=== PATIENT | male | born 1965 | race African-American/Black ===

== ENCOUNTER 2017-09-01 15:10 | Inpatient (IN) | payer OTHER ==
[2017-09-01 16:48] VITALS: BMI 20.9
--- NOTE | 2017-09-01 20:14 | HP ---
CIWA Score - CIWA Score Nausea/Vomitin Muscle Tremors: 4-Moderate,w/Arms Extend Anxiety: 5 Agitation: 5 Paroxysmal Sweats: No Perspiration Orientation: 3-Disoriented Date>2 days Tacttile Disturbances: 3-Moderate Itch/Numb/Burn Auditory Disturbances: 0-None Visual Disturbances: 0-None Headache: 3-Moderate CIWA-Ar Total Score: 26 Admission ROS BHS - HPI Chief Complaint: SEEKING DETOX FOR WITHDRAWAL SX'S R/T ALCOHOLISM Allergies/Adverse Reactions: Allergies Allergy/AdvReac Type Severity Reaction Status Date / Time No Known Allergies Allergy Verified 09/01/17 17:28 History of Present Illness: Y.O. MALE WITH LONG HX/O POLYSUBSTANCE ABUSE HERE FOR DETOX FROM ALCOHOL. CLIENT IS KNOWN TO PREVIOUS DETOX PROGRAMS. REPORTS LAST ATTEMPT WAS ABOUT 6 MONTHS AGO IN [facility]. REFERRED TODAY BY [facility]. CLIENT REPORTS LONGEST CLEAN 1.5 YEARS. Exam Limitations: No Limitations - Ebola screening Have you traveled outside of the country in the last 21 days: No Have you had contact with anyone from an Ebola affected area: No Have you been sick,other than usual withdrawal symptoms: No Do you have a fever: No - Review of Systems Constitutional: Loss of Appetite, Malaise, Night Sweats, Changes in sleep, Unintentional Wgt. Loss EENT: reports: Dental Problems (DECAYING OF TEETH) Respiratory: reports: Shortness of Breath (INTERMIITENT) Cardiac: reports: No Symptoms Reported GI: reports: Poor Appetite, Poor Fluid Intake, Abdominal cramping : reports: No Symptoms Reported Musculoskeletal: reports: No Symptoms Reported Integumentary: reports: No Symptoms Reported Neuro: reports: No Symptoms reported Endocrine: reports: No Symptoms Reported Hematology: reports: No Symptoms Reported Psychiatric: reports: Anxious, Depressed Other Systems: Reviewed and Negative Patient History - Patient Medical History Hx Anemia: No Hx Asthma: No Hx Chronic Obstructive Pulmonary Disease (COPD): No Hx Cancer: No Hx Cardiac Disorders: No Hx Congestive Heart Failure: No Hx Hypertension: Yes (NON COMPLIANT) Hx Hypercholesterolemia: No Hx Pacemaker: No HX Cerebrovascular Accident: No Hx Seizures: No Hx Dementia: No Hx Diabetes: No Hx Gastrointestinal Disorders: No Hx Liver Disease: No Hx Genitourinary Disorders: No Hx Sexually Transmitted Disorders: Yes (HIV) Hx Renal Disease (ESRD): No Hx Thyroid Disease: No Hx Human Immunodeficiency Virus (HIV): Yes (DX 1998 RX GENVOYA NON COMPLAINT FOR OVER A YEAR) Hx Hepatitis C: No Hx Depression: Yes (PROZAC NON COMPLAINT) Hx Suicide Attempt: No Hx Bipolar Disorder: No Hx Schizophrenia: No Other Medical History: ANXIETY - Patient Surgical History Past Surgical History: No Hx Neurologic Surgery: No Hx Cataract Extraction: No Hx Cardiac Surgery: No Hx Lung Surgery: No Hx Breast Surgery: No Hx Breast Biopsy: No Hx Abdominal Surgery: No Hx Appendectomy: No Hx Cholecystectomy: No Hx Genitourinary Surgery: No Hx Section: No Hx Orthopedic Surgery: No Hx Hysterectomy: No Anesthesia Reaction: No - PPD History Previous Implant?: Yes Documented Results: Negative w/proof Implanted On Prior [facility] Admission?: No PPD to be Administered?: Yes - Smoking Cessation Smoking history: Current every day smoker Have you smoked in the past 12 months: Yes Aproximately how many cigarettes per day: 20 Cigars Per Day: 0 Hx Chewing Tobacco Use: No Initiated information on smoking cessation: Yes 'Breaking Loose' booklet given: 09/01/17 - Substance & Tx. History Hx Alcohol Use: Yes Hx Substance Use: Yes Substance Use Type: Alcohol, Cocaine, Tranquilizers (CRYTAL METH) Hx Substance Use Treatment: Yes ([facility]) - Substances Abused Alcohol Route: Oral Frequency: Daily Amount used: liquor- 1 pint, beer- 4 (40oz) Age of first use: 18 Date of Last Use: 09/01/17 Cocaine Route: Inhalation Frequency: 3-6 times per week Amount used: 3 bags Age of first use: 20 Date of Last Use: 08/30/17 Crystal Meth Route: Injection Frequency: Daily Amount used: 1gm Age of first use: 51 Date of Last Use: 09/01/17 Family Disease History - Family Disease History Family Disease History: Diabetes: Mother, Other: Father (DRUG AND ALCOHOL) Admission Physical Exam BHS - Vital Signs Vital Signs: Vital Signs - 24 hr 09/01/17 16:45 Temperature 98.1 F Pulse Rate 83 Respiratory 19 Rate Blood Pressure 139/95 - Physical General Appearance: Yes: Appropriately Dressed, Thin, Tremorous, Irritable, Anxious HEENTM: Yes: EOMI, Normocephalic, Normal Voice, DIANA, Pharynx Normal, Other ( MISSING TEETH) Respiratory: Yes: Chest Non-Tender, Lungs Clear, Normal Breath Sounds, No Respiratory Distress, No Accessory Muscle Use Neck: Yes: No masses,lesions,Nodules, Supple, Trachea in good position Breast: Yes: Breast Exam Deferred Cardiology: Yes: Regular Rhythm, Regular Rate, S1, S2 Abdominal: Yes: Normal Bowel Sounds, Non Tender, Flat, Soft Genitourinary: Yes: Other (NO C/O) Back: Yes: Normal Inspection Musculoskeletal: Yes: full range of Motion, Gait Steady Extremities: Yes: Normal Range of Motion, Non-Tender, Tremors 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 intact, Fully Oriented, Alert, Motor Strength 5/5 Integumentary: Yes: Normal Color, Dry, Warm Lymphatic: Yes: Within Normal Limits - Diagnostic (1) Alcohol dependence with uncomplicated withdrawal Current Visit: Yes Status: Chronic (2) Cocaine dependence, uncomplicated Current Visit: Yes Status: Chronic (3) Nicotine dependence Current Visit: Yes Status: Chronic Qualifiers: Nicotine product type: cigarettes Substance use status: uncomplicated Qualified Code(s): F17.210 - Nicotine dependence, cigarettes, uncomplicated (4) Methamphetamine dependence Current Visit: Yes Status: Chronic (5) HIV disease Current Visit: Yes Status: Chronic Cleared for Admission [facility] - Detox or Rehab [facility] Level of Care: Medically Managed Detox Regimen/Protocol: [place] Claeared for Rehab Admission: No [facility] Breath Alcohol Content Breath Alcohol Content: 0 Urine Drug Screen - Results Drug Screen Negative: No Urine Drug Screen Results: JAVI-Cocaine, AMP-Amphetamines, MET-Methamphetamine
[2017-09-01] MEDS ORDERED: hydrOXYzine PAMOATE 50 MG CAPSULE (FP) PO PRN (20:24)
[2017-09-01] MEDS ORDERED: NICOTINE POLACRILEX 2 MG GUM BC PRN (20:24)
[2017-09-01] MEDS ORDERED: MENTHOL/PHENOL 1 EACH UD MM PRN (20:24)
[2017-09-01] MEDS ORDERED: MAGNESIUM HYDROX 2400MG/30ML ORAL SUSPENSION 30 ML CUP PO PRN (20:24)
[2017-09-01] MEDS ORDERED: LOPERAMIDE HCL 2 MG CAPSULE PO PRN (20:24)
[2017-09-01] MEDS ORDERED: chlordiazePOXIDE HCL 25 MG CAPSULE PO PRN (20:24)
[2017-09-01] MEDS ORDERED: P-EPHED 60MG/TRIPROLIDI 2.5MG TABLET PO PRN (20:24)
[2017-09-01] MEDS ORDERED: MAG HYDROX/AL HYDROX/SIMETH 30 ML UNIT-DOSE CUP PO PRN (20:24)
[2017-09-01] MEDS ORDERED: MAGNESIUM CITRATE 300 ML BOTTLE PO PRN (20:24)
[2017-09-01] MEDS ORDERED: guaiFENesin/D-METHORPHAN HB 10 ML UNIT-DOSE CUPS PO PRN (20:24)
[2017-09-01] MEDS ORDERED: ACETAMINOPHEN 325 MG TABLET (FP) PO PRN (20:24)
[2017-09-01] MEDS ORDERED: IBUPROFEN 400 MG TABLET (FP) PO PRN (20:24)
[2017-09-01] MEDS ORDERED: MELATONIN 5 MG TABLETS PO PRN (22:00)
[2017-09-01] MEDS: amLODIPine BESYLATE 5 MG TABLET (FP) PO SCH (22:01)
[2017-09-01] MEDS: chlordiazePOXIDE HCL 25 MG CAPSULE PO SCH (22:03)
[2017-09-01] MEDS: THIAMINE HCL 100 MG TABLET (FP) PO SCH (22:03)
[2017-09-01] MEDS: ASPIRIN COATED 81 MG TABLET.EC PO SCH (22:04)
[2017-09-02 05:08] LABS: URINE APPEARANCE CLEAR; URINE BILIRUBIN NEGATIVE (<2.0 mg/dL); URINE BLOOD NEGATIVE (NEGATIVE); URINE COLOR AMBER; URINE GLUCOSE (UA) NEGATIVE (NEGATIVE); URINE KETONE NEGATIVE (NEGATIVE); URINE LEUK ESTERASE TRACE (NEGATIVE); URINE NITRITE NEGATIVE (NEGATIVE); URINE UROBILINOGEN 4.0 E.U/dl mg/dL (0.2-1.0)
[2017-09-02 05:30] LABS: URINE PROTEIN 1+ (NEGATIVE)
[2017-09-02 05:53] LABS: EPI CELLS RARE /HPF (FEW); URINE MUCUS MODERATE
[2017-09-02] MEDS: chlordiazePOXIDE HCL 25 MG CAPSULE PO SCH ×4 (06:17→22:46)
[2017-09-02 10:17] LABS: HEMATOCRIT 31.7 % (35.4-49); HEMOGLOBIN 10.7 GM/dL (11.7-16.9); MCHC 33.9 g/dl (32.0-35.9); MEAN CELL VOLUME 82.5 fl (80-96); MEAN PLT VOLUME 7.3 fl (7.5-11.1); PLATELET COUNT 249 K/MM3 (134-434); RBC 3.84 M/mm3 (4.00-5.60); RDW 14.2 % (11.9-15.9); WHITE BLOOD COUNT 3.9 K/mm3 (4.0-10.0)
[2017-09-02 10:42] LABS: ALBUMIN 2.6 g/dl (3.4-5.0); ANION GAP -1 (8-16); BLOOD UREA NITROGEN 7 mg/dL (7-18); CALCIUM 8.2 mg/dL (8.5-10.1); CHLORIDE 107 mmol/L (98-107); CO2 28 mmol/L (21-32); GLUCOSE,RANDOM 82 mg/dL (74-106); POTASSIUM 3.9 mmol/L (3.5-5.1); SODIUM 134 mmol/L (136-145)
[2017-09-02 10:53] LABS: ALK PHOS 115 U/L (45-117); CREATININE 0.8 mg/dL (0.7-1.3); SGOT/AST 21 U/L (15-37); SGPT/ALT 14 U/L (12-78); TOT PROT 8.3 g/dl (6.4-8.2)
[2017-09-02 10:55] LABS: BILIRUBIN,TOTAL < 0.1 mg/dL (0.2-1.0)
[2017-09-02] MEDS: amLODIPine BESYLATE 5 MG TABLET (FP) PO SCH (10:58)
[2017-09-02] MEDS: ASPIRIN COATED 81 MG TABLET.EC PO SCH (10:58)
[2017-09-02] MEDS: PRENATAL VITAMINS W/ FOLIC ACID TABLET (FP) PO SCH (10:58)
[2017-09-02] MEDS: NICOTINE 14 MG/24 HOURS TOPICAL PATCH TD SCH (10:58)
--- NOTE | 2017-09-02 12:07 | CONSULT ---
[facility] Psychiatric Consult - Data Date of interview: 09/02/17 Admission source: [facility] Identifying data: First admission to [facility] for this 52 y/o AA male seeking detox treatment on for alcohol,cocaine and methamphetamine dependence.Patient is single without children,homeless,unemployed and supported on food stamps. Substance Abuse History: Confirmed by patient in this interview. See details in current [facility] report : Smoking history: Current every day smoker. Have you smoked in the past 12 months: Yes. Aproximately how many cigarettes per day: 20. Cigars Per Day: 0. Hx Chewing Tobacco Use: No. Initiated information on smoking cessation: Yes. 'Breaking Loose' booklet given: 09/01/17. - Substance & Tx. History. Hx Alcohol Use: Yes. Hx Substance Use: Yes. Substance Use Type : Alcohol, Cocaine, Tranquilizers (CRYTAL METH). Hx Substance Use Treatment: Yes ([facility]). - Substances Abused. Alcohol. Route: Oral. Frequency: Daily. Amount used: liquor- 1 pint, beer- 4 (40oz). Age of first use: 18. Date of Last Use: 09/01/17. Cocaine. Route: Inhalation. Frequency: 3-6 times per week. Amount used: 3 bags. Age of first use: 20. Date of Last Use: 08/30/17. Crystal Meth. Route: Injection. Frequency: Daily. Amount used: 1gm. Age of first use: 51. Date of Last Use: 09/01/17 Medical History: Hypertension,HIV infection since 1997 (on HAART medications). Psychiatric History: Patient denies history of mental illness,psychiatric hospitalizations or OPD care.Mr Verduzco denies history of suicide attempts. Physical/Sexual Abuse/Trauma History: Patient denies. Additional Comment: Urine Drug Screen Results: JAVI-Cocaine, AMP-Amphetamines, MET-Methamphetamine.Noted. Mental Status Exam - Mental Status Exam Alert and Oriented to: Time, Place, Person Cognitive Function: Grossly Intact Patient Appearance: Unkempt, Disheveled Mood: Nervous, Withdrawn Affect: Mood Congruent, Constricted Patient Behavior: Fatigued, Cooperative Speech Pattern: Clear Voice Loudness: Normal Thought Process: Goal Oriented Thought Disorder: Not Present Hallucinations: Denies Suicidal Ideation: Denies Homicidal Ideation: Denies Insight/Judgement: Poor Sleep: Poorly, Difficulty falling asleep Appetite: Fair Muscle strength/Tone: Normal Gait/Station: Normal Psychiatric Findings - Problem List ([place] 1, 2,3) (1) Alcohol dependence with uncomplicated withdrawal Current Visit: Yes Status: Acute (2) Cocaine dependence, uncomplicated Current Visit: Yes Status: Acute (3) Methamphetamine dependence Current Visit: Yes Status: Acute (4) Nicotine dependence Current Visit: Yes Status: Acute Qualifiers: Nicotine product type: cigarettes Substance use status: uncomplicated Qualified Code(s): F17.210 - Nicotine dependence, cigarettes, uncomplicated (5) Insomnia Current Visit: Yes Status: Acute - Initial Treatment Plan Initial Treatment Plan: Psychoeducation.Sleep hygiene.Detoxification in progress.Ambien 5 mg po hs prn.Ordered.Patient is informed of risk of parasomnias.He agrees with this careplan.Observation.
--- NOTE | 2017-09-02 13:08 | PN ---
S CIWA - CIWA Score Nausea/Vomitin-No Nausea/No Vomiting Muscle Tremors: 3 Anxiety: 5 Agitation: 3 Paroxysmal Sweats: 1-Minimal Palms Moist Orientation: 0-Oriented Tacttile Disturbances: 0-None Auditory Disturbances: 0-None Visual Disturbances: 0-None Headache: 0-None Present CIWA-Ar Total Score: 12 BHS Progress Note (SOAP) Subjective: ANXIETY,SWEATS,FATIGUE. Objective: 09/02/17 13:07 Vital Signs Temperature 97.4 F L 09/02/17 09:24 Pulse Rate 97 H 09/02/17 09:24 Respiratory Rate 18 09/02/17 09:24 Blood Pressure 125/83 09/02/17 09:24 O2 Sat by Pulse Oximetry (%) Laboratory Last Values WBC 3.9 K/mm3 (4.0-10.0) L 09/02/17 07:00 RBC 3.84 M/mm3 (4.00-5.60) L 09/02/17 07:00 Hgb 10.7 GM/dL (11.7-16.9) L 09/02/17 07:00 Hct 31.7 % (35.4-49) L 09/02/17 07:00 MCV 82.5 fl (80-96) 09/02/17 07:00 MCH 28.0 pg (25.7-33.7) 09/02/17 07:00 MCHC 33.9 g/dl (32.0-35.9) 09/02/17 07:00 RDW 14.2 % (11.9-15.9) 09/02/17 07:00 Plt Count 249 K/MM3 (134-434) 09/02/17 07:00 MPV 7.3 fl (7.5-11.1) L 09/02/17 07:00 Sodium 134 mmol/L (136-145) L 09/02/17 07:00 Potassium 3.9 mmol/L (3.5-5.1) 09/02/17 07:00 Chloride 107 mmol/L (98-107) 09/02/17 07:00 Carbon Dioxide 28 mmol/L (21-32) 09/02/17 07:00 Anion Gap -1 (8-16) L 09/02/17 07:00 BUN 7 mg/dL (7-18) 09/02/17 07:00 Creatinine 0.8 mg/dL (0.7-1.3) 09/02/17 07:00 Creat Clearance w eGFR > 60 (>60) 09/02/17 07:00 Random Glucose 82 mg/dL (74-106) 09/02/17 07:00 Calcium 8.2 mg/dL (8.5-10.1) L 09/02/17 07:00 Total Bilirubin < 0.1 mg/dL (0.2-1.0) L 09/02/17 07:00 AST 21 U/L (15-37) 09/02/17 07:00 ALT 14 U/L (12-78) 09/02/17 07:00 Alkaline Phosphatase 115 U/L (45-117) 09/02/17 07:00 Total Protein 8.3 g/dl (6.4-8.2) H 09/02/17 07:00 Albumin 2.6 g/dl (3.4-5.0) L 09/02/17 07:00 Urine Color [place]ica 09/02/17 00:42 Urine Appearance Clear 09/02/17 00:42 Urine pH 5.0 (5.0-8.0) 09/02/17 00:42 Ur Specific [place] 1.030 (1.001-1.035) 09/02/17 00:42 Urine Protein 1+ (NEGATIVE) H 09/02/17 00:42 Urine Glucose (UA) Negative (NEGATIVE) 09/02/17 00:42 Urine Ketones Negative (NEGATIVE) 09/02/17 00:42 Urine Blood Negative (NEGATIVE) 09/02/17 00:42 Urine Nitrite Negative (NEGATIVE) 09/02/17 00:42 Urine Bilirubin Negative (<2.0 mg/dL) 09/02/17 00:42 Urine Urobilinogen 4.0 e.u/dl mg/dL (0.2-1.0) 09/02/17 00:42 Ur Leukocyte Esterase Trace (NEGATIVE) 09/02/17 00:42 Urine WBC (Auto) 6 /hpf (3-5) 09/02/17 00:42 Urine RBC (Auto) 1 /hpf (0-3) 09/02/17 00:42 Ur Epithelial Cells Rare /HPF (FEW) 09/02/17 00:42 Urine Mucus Moderate 09/02/17 00:42 Assessment: 09/02/17 13:07 WITHDRAWAL SX Plan: CONTINUE DETOX REPEAT UA
--- NOTE | 2017-09-02 13:10 | EKG ---
Test Reason : Blood Pressure : / mmHG Vent. Rate : 077 BPM Atrial Rate : 077 BPM P-R Int : 174 ms QRS Dur : 098 ms QT Int : 406 ms P-R-T Axes : 071 068 069 degrees QTc Int : 459 ms NORMAL SINUS RHYTHM NORMAL ECG NO PREVIOUS ECGS AVAILABLE Confirmed by MIGUEL BOYLE, CONSTANZA ([id number]) on 09/02/2017 1:10:15 PM Referred By: Confirmed By:CONSTANZA RIVERA MD
[2017-09-02] MEDS ORDERED: ZOLPIDEM TARTRATE 5 MG TABLET PO PRN (22:00)
[2017-09-02] MEDS: THIAMINE HCL 100 MG TABLET (FP) PO SCH (22:46)
[2017-09-03] MEDS: chlordiazePOXIDE HCL 25 MG CAPSULE PO SCH ×3 (05:53→17:34)
[2017-09-03] MEDS: NICOTINE 14 MG/24 HOURS TOPICAL PATCH TD SCH (10:34)
[2017-09-03] MEDS: amLODIPine BESYLATE 5 MG TABLET (FP) PO SCH (10:34)
[2017-09-03] MEDS: ASPIRIN COATED 81 MG TABLET.EC PO SCH (10:34)
[2017-09-03] MEDS: PRENATAL VITAMINS W/ FOLIC ACID TABLET (FP) PO SCH (10:34)
--- NOTE | 2017-09-03 16:33 | PN ---
S CIWA - CIWA Score Nausea/Vomitin-No Nausea/No Vomiting Muscle Tremors: 2 Anxiety: 4-Mod. Anxious/Guarded Agitation: 3 Paroxysmal Sweats: No Perspiration Orientation: 0-Oriented Tacttile Disturbances: 0-None Auditory Disturbances: 2-Mild Harshness/Frighten Visual Disturbances: 3-Moderate Sensitivity Headache: 0-None Present CIWA-Ar Total Score: 14 BHS Progress Note (SOAP) Subjective: Interrupted Sleep, Fatigue, Anxious, Tremors. Objective: PATIENT A & O X 3. NO ACUTE DISTRESS. 09/03/17 16:31 Vital Signs Temperature 98.6 F 09/03/17 14:46 Pulse Rate 98 H 09/03/17 14:46 Respiratory Rate 16 09/03/17 14:46 Blood Pressure 117/78 09/03/17 14:46 O2 Sat by Pulse Oximetry (%) Laboratory Tests 09/02/17 09/02/17 09/02/17 00:42 07:00 07:00 WBC 3.9 L RBC 3.84 L Hgb 10.7 L Hct 31.7 L MCV 82.5 MCH 28.0 MCHC 33.9 RDW 14.2 Plt Count 249 MPV 7.3 L Sodium 134 L Potassium 3.9 Chloride 107 Carbon Dioxide 28 Anion Gap -1 L BUN 7 Creatinine 0.8 Creat Clearance w eGFR > 60 Random Glucose 82 Calcium 8.2 L Total Bilirubin < 0.1 L AST 21 ALT 14 Alkaline Phosphatase 115 Total Protein 8.3 H Albumin 2.6 L Urine Color Yesica Urine Appearance Clear Urine pH 5.0 Ur Specific [place] 1.030 Urine Protein 1+ H Urine Glucose (UA) Negative Urine Ketones Negative Urine Blood Negative Urine Nitrite Negative Urine Bilirubin Negative Urine Urobilinogen 4.0 e.u/dl Ur Leukocyte Esterase Trace Urine WBC (Auto) 6 Urine RBC (Auto) 1 Ur Epithelial Cells Rare Urine Mucus Moderate RPR Titer 09/02/17 07:00 WBC RBC Hgb Hct MCV MCH MCHC RDW Plt Count MPV Sodium Potassium Chloride Carbon Dioxide Anion Gap BUN Creatinine Creat Clearance w eGFR Random Glucose Calcium Total Bilirubin AST ALT Alkaline Phosphatase Total Protein Albumin Urine Color Urine Appearance Urine pH Ur Specific [place] Urine Protein Urine Glucose (UA) Urine Ketones Urine Blood Urine Nitrite Urine Bilirubin Urine Urobilinogen Ur Leukocyte Esterase Urine WBC (Auto) Urine RBC (Auto) Ur Epithelial Cells Urine Mucus RPR Titer Nonreactive LABS NOTED. Assessment: 09/03/17 16:32 WITHDRAWAL SYMPTOMS. Plan: CONTINUE DETOX. INCREASE DAILY PO FLUID INTAKE.
[2017-09-03] MEDS: chlordiazePOXIDE 5 MG CAPSULE PO SCH (22:47)
[2017-09-03] MEDS: THIAMINE HCL 100 MG TABLET (FP) PO SCH (22:47)
[2017-09-04] MEDS: chlordiazePOXIDE 5 MG CAPSULE PO SCH ×3 (06:18→17:15)
[2017-09-04] MEDS: ASPIRIN COATED 81 MG TABLET.EC PO SCH (11:09)
[2017-09-04] MEDS: PRENATAL VITAMINS W/ FOLIC ACID TABLET (FP) PO SCH (11:10)
[2017-09-04] MEDS: NICOTINE 14 MG/24 HOURS TOPICAL PATCH TD SCH (11:10)
[2017-09-04] MEDS: amLODIPine BESYLATE 5 MG TABLET (FP) PO SCH (11:10)
--- NOTE | 2017-09-04 11:51 | PN ---
BHS Progress Note (SOAP) Subjective: Constipation, Fatigue. Objective: PATIENT A & O X 3. NO ACUTE DISTRESS. 09/04/17 11:49 Vital Signs Temperature 97.9 F 09/04/17 09:36 Pulse Rate 88 09/04/17 09:36 Respiratory Rate 18 09/04/17 09:36 Blood Pressure 112/81 09/04/17 09:36 O2 Sat by Pulse Oximetry (%) Laboratory Tests 09/02/17 09/02/17 09/02/17 00:42 07:00 07:00 WBC 3.9 L RBC 3.84 L Hgb 10.7 L Hct 31.7 L MCV 82.5 MCH 28.0 MCHC 33.9 RDW 14.2 Plt Count 249 MPV 7.3 L Sodium 134 L Potassium 3.9 Chloride 107 Carbon Dioxide 28 Anion Gap -1 L BUN 7 Creatinine 0.8 Creat Clearance w eGFR > 60 Random Glucose 82 Calcium 8.2 L Total Bilirubin < 0.1 L AST 21 ALT 14 Alkaline Phosphatase 115 Total Protein 8.3 H Albumin 2.6 L Urine Color Yesica Urine Appearance Clear Urine pH 5.0 Ur Specific [place] 1.030 Urine Protein 1+ H Urine Glucose (UA) Negative Urine Ketones Negative Urine Blood Negative Urine Nitrite Negative Urine Bilirubin Negative Urine Urobilinogen 4.0 e.u/dl Ur Leukocyte Esterase Trace Urine WBC (Auto) 6 Urine RBC (Auto) 1 Ur Epithelial Cells Rare Urine Mucus Moderate RPR Titer 09/02/17 07:00 WBC RBC Hgb Hct MCV MCH MCHC RDW Plt Count MPV Sodium Potassium Chloride Carbon Dioxide Anion Gap BUN Creatinine Creat Clearance w eGFR Random Glucose Calcium Total Bilirubin AST ALT Alkaline Phosphatase Total Protein Albumin Urine Color Urine Appearance Urine pH Ur Specific [place] Urine Protein Urine Glucose (UA) Urine Ketones Urine Blood Urine Nitrite Urine Bilirubin Urine Urobilinogen Ur Leukocyte Esterase Urine WBC (Auto) Urine RBC (Auto) Ur Epithelial Cells Urine Mucus RPR Titer Nonreactive LABS NOTED. RESULTS OF REPEAT UA PENDING. PATIENT DENIES ANY UNUSUAL URINARY SYMPTOMS (BURNING, PAIN, FREQUENCY, URGENCY). Assessment: 09/04/17 11:50 WITHDRAWAL SYMPTOMS. Plan: CONTINUE DETOX. INCREASE DAILY PO FLUID INTAKE.
[2017-09-04 14:11] LABS: URINE APPEARANCE SLCLOUDY; URINE BILIRUBIN NEGATIVE (<2.0 mg/dL); URINE BLOOD NEGATIVE (NEGATIVE); URINE COLOR YELLOW; URINE GLUCOSE (UA) NEGATIVE (NEGATIVE); URINE KETONE NEGATIVE (NEGATIVE); URINE LEUK ESTERASE NEGATIVE (NEGATIVE); URINE NITRITE POSITIVE (NEGATIVE); URINE PROTEIN NEGATIVE (NEGATIVE); URINE UROBILINOGEN NEGATIVE mg/dL (0.2-1.0)
[2017-09-04 14:29] LABS: EPI CELLS RARE /HPF (FEW); URINE BACTERIA MANY /hpf (NONE SEEN); URINE MUCUS RARE
--- NOTE | 2017-09-04 15:58 | PN ---
BHS Progress Note Note: Results of Repeat UA noted. Patient denies any current unusual urinary symptoms (burning, pain, frequency, urgency, etc. No need for further action at this time. Aamir Tomas [employer]GET[employer]OWER
[2017-09-04] MEDS: chlordiazePOXIDE HCL 10 MG CAPSULE PO SCH (23:01)
[2017-09-04] MEDS: THIAMINE HCL 100 MG TABLET (FP) PO SCH (23:01)
[2017-09-05] MEDS: chlordiazePOXIDE HCL 10 MG CAPSULE PO SCH (05:21)
[2017-09-05 06:34] VITALS: BP 143/89; PULSE 94; TEMP 97.5
--- NOTE | 2017-09-05 16:48 | PN ---
[facility] Progress Note (SOAP) Subjective: Patient denies any current Detox symptoms and reports that he feels well overall. Objective: PATIENT A & O X 3, OBSERVED AMBULATING ON UNIT. NO ACUTE DISTRESS. 09/05/17 16:47 Vital Signs Temperature 97.5 F L 09/05/17 06:33 Pulse Rate 94 H 09/05/17 06:33 Respiratory Rate 18 09/05/17 06:33 Blood Pressure 143/89 09/05/17 06:33 O2 Sat by Pulse Oximetry (%) Laboratory Tests 09/02/17 09/02/17 09/02/17 00:42 07:00 07:00 WBC 3.9 L RBC 3.84 L Hgb 10.7 L Hct 31.7 L MCV 82.5 MCH 28.0 MCHC 33.9 RDW 14.2 Plt Count 249 MPV 7.3 L Sodium 134 L Potassium 3.9 Chloride 107 Carbon Dioxide 28 Anion Gap -1 L BUN 7 Creatinine 0.8 Creat Clearance w eGFR > 60 Random Glucose 82 Calcium 8.2 L Total Bilirubin < 0.1 L AST 21 ALT 14 Alkaline Phosphatase 115 Total Protein 8.3 H Albumin 2.6 L Urine Color Yesica Urine Appearance Clear Urine pH 5.0 Ur Specific [place] 1.030 Urine Protein 1+ H Urine Glucose (UA) Negative Urine Ketones Negative Urine Blood Negative Urine Nitrite Negative Urine Bilirubin Negative Urine Urobilinogen 4.0 e.u/dl Ur Leukocyte Esterase Trace Urine WBC (Auto) 6 Urine RBC (Auto) 1 Ur Epithelial Cells Rare Urine Bacteria Urine Mucus Moderate RPR Titer 09/02/17 09/04/17 07:00 10:40 WBC RBC Hgb Hct MCV MCH MCHC RDW Plt Count MPV Sodium Potassium Chloride Carbon Dioxide Anion Gap BUN Creatinine Creat Clearance w eGFR Random Glucose Calcium Total Bilirubin AST ALT Alkaline Phosphatase Total Protein Albumin Urine Color Yellow Urine Appearance Slcloudy Urine pH 6.0 Ur Specific [place] 1.012 Urine Protein Negative Urine Glucose (UA) Negative Urine Ketones Negative Urine Blood Negative Urine Nitrite Positive Urine Bilirubin Negative Urine Urobilinogen Negative Ur Leukocyte Esterase Negative Urine WBC (Auto) 1 Urine RBC (Auto) <1 Ur Epithelial Cells Rare Urine Bacteria Many Urine Mucus Rare RPR Titer Nonreactive LABS NOTED. Assessment: 09/05/17 16:47 COMPLETION OF DETOX REGIMEN. Plan: PATIENT SCHEDULED FOR DISCHARGE FROM DETOX TODAY. NO BEDS AVAILABLE AT [facility], PATIENT ADVISED TO CONTACT [facility] ADMISSIONS DEPT. IN AM ON 09/07/2017, TO INQUIRE ABOUT POSSIBLE ADMISSION AT THAT TIME.
--- NOTE | 2017-09-05 16:51 | DS ---
[facility] Detox Discharge Summary Admission Date: 09/01/17 Discharge Date: 09/05/17 - History Present History: Alcohol Dependence, Cocaine Dependence Additional Comments: NO BEDS AVAILABLE AT [facility], PATIENT ADVISED TO CONTACT [facility] ADMISSIONS DEPT. IN AM ON 09/07/2017, TO INQUIRE ABOUT POSSIBLE ADMISSION AT THAT TIME. PATIENT WAS DISCHARGED FROM DETOX UNIT IN STABLE MEDICAL CONDITION. Pertinent Past History: Depression, Anxiety, HIV, Insomnia, Nicotine Dependence. - Physical Exam Results Vital Signs: Vital Signs Temperature 97.5 F L 09/05/17 06:33 Pulse Rate 94 H 09/05/17 06:33 Respiratory Rate 09/05/17 06:33 Blood Pressure 143/89 09/05/17 06:33 O2 Sat by Pulse Oximetry (%) Pertinent Admission Physical Exam Findings: WITHDRAWAL SYMPTOMS. Laboratory Tests 09/02/17 09/02/17 09/02/17 00:42 07:00 07:00 WBC 3.9 L RBC 3.84 L Hgb 10.7 L Hct 31.7 L MCV 82.5 MCH 28.0 MCHC 33.9 RDW 14.2 Plt Count 249 MPV 7.3 L Sodium 134 L Potassium 3.9 Chloride 107 Carbon Dioxide 28 Anion Gap -1 L BUN 7 Creatinine 0.8 Creat Clearance w eGFR > 60 Random Glucose 82 Calcium 8.2 L Total Bilirubin < 0.1 L AST 21 ALT 14 Alkaline Phosphatase 115 Total Protein 8.3 H Albumin 2.6 L Urine Color [place] Urine Appearance Clear Urine pH 5.0 Ur Specific [place] 1.030 Urine Protein 1+ H Urine Glucose (UA) Negative Urine Ketones Negative Urine Blood Negative Urine Nitrite Negative Urine Bilirubin Negative Urine Urobilinogen 4.0 e.u/dl Ur Leukocyte Esterase Trace Urine WBC (Auto) 6 Urine RBC (Auto) 1 Ur Epithelial Cells Rare Urine Bacteria Urine Mucus Moderate RPR Titer 09/02/17 09/04/17 07:00 10:40 WBC RBC Hgb Hct MCV MCH MCHC RDW Plt Count MPV Sodium Potassium Chloride Carbon Dioxide Anion Gap BUN Creatinine Creat Clearance w eGFR Random Glucose Calcium Total Bilirubin AST ALT Alkaline Phosphatase Total Protein Albumin Urine Color Yellow Urine Appearance Slcloudy Urine pH 6.0 Ur Specific [place] 1.012 Urine Protein Negative Urine Glucose (UA) Negative Urine Ketones Negative Urine Blood Negative Urine Nitrite Positive Urine Bilirubin Negative Urine Urobilinogen Negative Ur Leukocyte Esterase Negative Urine WBC (Auto) 1 Urine RBC (Auto) <1 Ur Epithelial Cells Rare Urine Bacteria Many Urine Mucus Rare RPR Titer Nonreactive LABS NOTED. - Treatment Hospital Course: Detox Protocol Followed, Detoxed Safely, Responded well, Discharged Condition Good, Rehab Referral Accepted Patient has Accepted a Rehab Referral to: [facility] ([email or web address] . - Medication Discharge Medications: Ambulatory Orders Amlodipine Besylate [Amlodipine Besylate] 09/01/17 Aspirin [Aspirin EC] 09/01/17 Atenolol [Tenormin -] 09/01/17 Elviteg/Cob/Emtri/Tenof Alafen [Genvoya (Non-Formulary)] 09/01/17 Fluoxetine HCl [Fluoxetine HCl] 09/01/17 Sulfamethoxazole/Trimethoprim [Sulfamethoxazole-Tmp Ds Tablet] 09/01/17 - Diagnosis (1) Alcohol dependence with uncomplicated withdrawal Status: Acute (2) Cocaine dependence, uncomplicated Status: Acute (3) Insomnia Status: Acute Qualifiers: Insomnia type: unspecified Qualified Code(s): G47.00 - Insomnia, unspecified (4) Methamphetamine dependence Status: Acute (5) Nicotine dependence Status: Acute Qualifiers: Nicotine product type: cigarettes Substance use status: in withdrawal Qualified Code(s): F17.213 - Nicotine dependence, cigarettes, with withdrawal (6) HIV disease Status: Chronic - AMA Did Patient Leave Against Medical Advice: No
== END 2017-09-05 09:30 | disposition home or self-care (01) | DRG 774 ==
LOC: YASAS 15:10 → Y3N 17:52
PROVIDERS: ADMIT Internal Medicine; ATTEND Internal Medicine
PROC: HZ2ZZZZ Detoxification Services for Substance Abuse Treatment (ICD-10-PCS; principal; 2017-09-01)
DX: F10.230 Alcohol dependence with withdrawal, uncomplicated (principal); F14.20 Cocaine dependence, uncomplicated; F15.20 Other stimulant dependence, uncomplicated; F17.210 Nicotine dependence, cigarettes, uncomplicated; F41.9 Anxiety disorder, unspecified; G47.00 Insomnia, unspecified; I10 Essential (primary) hypertension; Z91.14 Patient's other noncompliance with medication regimen; Z21 Asymptomatic human immunodeficiency virus [HIV] infection status
CPT/HCPCS: 36415; 80053; 81003; 81015; 85027; 86593; 93005; 93010

== ENCOUNTER 2017-11-22 16:59 | Inpatient (IN) | payer OTHER ==
[2017-11-22 18:09] VITALS: BMI 21.3
--- NOTE | 2017-11-22 19:27 | HP ---
CIWA Score - CIWA Score Nausea/Vomitin-Int. Nausea w/Dry Heave Muscle Tremors: 4-Moderate,w/Arms Extend Anxiety: 5 Agitation: 4-Moderately Restless Paroxysmal Sweats: No Perspiration Orientation: 0-Oriented Tacttile Disturbances: 3-Moderate Itch/Numb/Burn Auditory Disturbances: 0-None Visual Disturbances: 0-None Headache: 2-Mild CIWA-Ar Total Score: 22 Admission ROS BHS - HPI Chief Complaint: ALCOHOL WITHDRAWAL SX Allergies/Adverse Reactions: Allergies Allergy/AdvReac Type Severity Reaction Status Date / Time No Known Allergies Allergy Verified 11/22/17 18:44 History of Present Illness: 52 Y/O AA/MALE WITH A HX ALCOHOL,CRYSTAL METH AND MARIJUANA DEPENDENCE SEEKING DETOX [place]. PT REPORTS HE WAS AT "[facility] ER TODAY TO GET HELP WITH MY ALCOHOL AND DRUG PROBLEM AND TO GET MY LIFE TOGETHER".PT REPORTS HE WAS JITTERY , RESTLESS, . DENIES HEARING VOICES. [facility] REFERRED HIM HERE. Exam Limitations: No Limitations - Ebola screening Have you traveled outside of the country in the last 21 days: No Have you had contact with anyone from an Ebola affected area: No Have you been sick,other than usual withdrawal symptoms: No Do you have a fever: No - Review of Systems Constitutional: Changes in sleep, Unintentional Wgt. Loss EENT: reports: Blurred Vision, Tearing, Nose Congestion, Dental Problems ( MISSING TEETH) Respiratory: reports: SOB with Exertion Cardiac: reports: Lightheadedness GI: reports: Constipated, Poor Fluid Intake : reports: No Symptoms Reported Musculoskeletal: reports: No Symptoms Reported Integumentary: reports: Rash Neuro: reports: Headache, Tremors, Dizziness Endocrine: reports: No Symptoms Reported Hematology: reports: No Symptoms Reported Psychiatric: reports: Orientated x3, Anxious, Depressed Other Systems: Reviewed and Negative Patient History - Patient Medical History Hx Anemia: No Hx Asthma: No Hx Chronic Obstructive Pulmonary Disease (COPD): No Hx Cancer: No Hx Cardiac Disorders: No Hx Congestive Heart Failure: No Hx Hypertension: Yes (NON COMPLIANT BUT TAKES AMLODIPINE 10 MG) Hx Hypercholesterolemia: No Hx Pacemaker: No HX Cerebrovascular Accident: No Hx Seizures: No Hx Dementia: No Hx Diabetes: No Hx Gastrointestinal Disorders: No Hx Liver Disease: No Hx Genitourinary Disorders: No Hx Sexually Transmitted Disorders: Yes (SYPHILIS & GONORRHEA TREATMENT IN THE PAST) Hx Renal Disease (ESRD): No Hx Thyroid Disease: No Hx Human Immunodeficiency Virus (HIV): Yes (DX 1998 RX GENVOYA NON COMPLAINT FOR OVER A YEAR) Hx Hepatitis C: No Hx Depression: Yes (PROZAC NON COMPLAINT) Hx Suicide Attempt: Yes (OVERDOSED ON PILLS IN 2007) Hx Bipolar Disorder: No Hx Schizophrenia: No - Patient Surgical History Past Surgical History: Yes Hx Neurologic Surgery: No Hx Cataract Extraction: No Hx Cardiac Surgery: No Hx Lung Surgery: No Hx Breast Surgery: No Hx Breast Biopsy: No Hx Abdominal Surgery: No Hx Appendectomy: No Hx Cholecystectomy: No Hx Genitourinary Surgery: No Hx Orthopedic Surgery: No Hx Hysterectomy: No Other Surgical History: TONSILLECTOMY A CHILD Anesthesia Reaction: No - PPD History Previous Implant?: Yes Documented Results: Negative w/proof Date: 09/03/17 PPD to be Administered?: No - Reproductive History Patient is a Female of Child Bearing Age (11 -55 yrs old): No (MALE) - Smoking Cessation Smoking history: Current every day smoker Have you smoked in the past 12 months: Yes Aproximately how many cigarettes per day: 20 Cigars Per Day: 0 Hx Chewing Tobacco Use: No Initiated information on smoking cessation: Yes 'Breaking Loose' booklet given: 11/22/17 - Substance & Tx. History Hx Alcohol Use: Yes (BEER/VODKA/WINE) Hx Substance Use: Yes (COCAINE/MARIJUANA/METHAMPHETAMINE) Substance Use Type: Alcohol, Cocaine, Marijuana Hx Substance Use Treatment: Yes - Substances Abused Alcohol Route: Oral Frequency: Daily Amount used: LIQUOR- 4 PINTS, BEER, 2 SIX PACK Age of first use: 15 Date of Last Use: 11/21/17 Family Disease History - Family Disease History Family Disease History: Diabetes: Mother, Other: Father (DRUG AND ALCOHOL) Admission Physical Exam BHS - Vital Signs Vital Signs: Vital Signs - 24 hr 11/22/17 18:07 Temperature 98.8 F Pulse Rate 91 H Respiratory 18 Rate Blood Pressure 118/79 - Physical General Appearance: Yes: Moderate Distress, Irritable, Anxious HEENTM: Yes: EOMI, Normocephalic, DIANA, Pharynx Normal Respiratory: Yes: Chest Non-Tender, Lungs Clear, Normal Breath Sounds, No Respiratory Distress Neck: Yes: Supple, Trachea in good position Breast: Yes: Breast Exam Deferred Cardiology: Yes: Regular Rhythm, Regular Rate, S1, S2 Abdominal: Yes: Normal Bowel Sounds, Non Tender, Flat, Soft Genitourinary: Yes: Other (N/C) Back: Yes: Within Normal Limits Musculoskeletal: Yes: full range of Motion, Gait Steady Extremities: Yes: Normal Range of Motion, Non-Tender Neurological: Yes: tube heater II-XII NML intact, Fully Oriented, Alert, Motor Strength 5/5 Integumentary: Yes: Dry, Warm Lymphatic: Yes: Within Normal Limits - Diagnostic (1) Alcohol dependence with uncomplicated withdrawal Current Visit: Yes Status: Acute (2) Cocaine dependence, uncomplicated Current Visit: Yes Status: Acute (3) Methamphetamine dependence Current Visit: Yes Status: Acute (4) Nicotine dependence Current Visit: Yes Status: Acute Qualifiers: Nicotine product type: cigarettes Substance use status: in withdrawal Qualified Code(s): F17.213 - Nicotine dependence, cigarettes, with withdrawal (5) HIV (human immunodeficiency virus infection) Current Visit: Yes Status: Chronic Cleared for Admission [facility] - Detox or Rehab [facility] Level of Care: Medically Managed Detox Regimen/Protocol: Librium [facility] Breath Alcohol Content Breath Alcohol Content: 0 Urine Drug Screen - Results Drug Screen Negative: No Urine Drug Screen Results: THC-Marijuana, JAVI-Cocaine, AMP-Amphetamines, MET- Methamphetamine
[2017-11-22] MEDS ORDERED: MAG HYDROX/AL HYDROX/SIMETH 30 ML UNIT-DOSE CUP PO PRN (19:39)
[2017-11-22] MEDS ORDERED: NICOTINE POLACRILEX 4 MG GUM BC PRN (19:39)
[2017-11-22] MEDS ORDERED: MAGNESIUM HYDROX 2400MG/30ML ORAL SUSPENSION 30 ML CUP PO PRN (19:39)
[2017-11-22] MEDS ORDERED: MENTHOL/PHENOL 1 EACH UD MM PRN (19:39)
[2017-11-22] MEDS ORDERED: guaiFENesin/D-METHORPHAN HB 10 ML UNIT-DOSE CUPS PO PRN (19:39)
[2017-11-22] MEDS ORDERED: LOPERAMIDE HCL 2 MG CAPSULE PO PRN (19:39)
[2017-11-22] MEDS ORDERED: MAGNESIUM CITRATE 300 ML BOTTLE PO PRN (19:39)
[2017-11-22] MEDS ORDERED: hydrOXYzine PAMOATE 50 MG CAPSULE (FP) PO PRN (19:39)
[2017-11-22] MEDS ORDERED: IBUPROFEN 400 MG TABLET (FP) PO PRN (19:39)
[2017-11-22] MEDS ORDERED: P-EPHED 60MG/TRIPROLIDI 2.5MG TABLET PO PRN (19:39)
[2017-11-22] MEDS ORDERED: ACETAMINOPHEN 325 MG TABLET (FP) PO PRN (19:39)
[2017-11-22] MEDS ORDERED: chlordiazePOXIDE HCL 25 MG CAPSULE PO PRN (19:39)
[2017-11-22] MEDS ORDERED: chlordiazePOXIDE HCL 25 MG CAPSULE PO ONE (20:00)
[2017-11-22] MEDS: NICOTINE 21 MG/24 HOURS TOPICAL PATCH TD SCH (21:01)
[2017-11-22] MEDS: THIAMINE HCL 100 MG TABLET (FP) PO SCH (21:01)
[2017-11-22] MEDS ORDERED: MELATONIN 5 MG TABLETS PO PRN (22:00)
[2017-11-22] MEDS: chlordiazePOXIDE HCL 25 MG CAPSULE PO SCH (23:08)
[2017-11-23] MEDS: chlordiazePOXIDE HCL 25 MG CAPSULE PO SCH ×4 (06:39→22:32)
[2017-11-23 10:08] LABS: HEMATOCRIT 31.3 % (35.4-49); HEMOGLOBIN 10.5 GM/dL (11.7-16.9); MCH 28.2 pg (25.7-33.7); MCHC 33.5 g/dl (32.0-35.9); MEAN CELL VOLUME 84.2 fl (80-96); MEAN PLT VOLUME 7.2 fl (7.5-11.1); PLATELET COUNT 297 K/MM3 (134-434); RBC 3.71 M/mm3 (4.00-5.60)
[2017-11-23] MEDS: PRENATAL VITAMINS W/ FOLIC ACID TABLET (FP) PO SCH (10:16)
[2017-11-23] MEDS: NICOTINE 21 MG/24 HOURS TOPICAL PATCH TD SCH (10:16)
[2017-11-23 10:17] LABS: CHLORIDE 104 mmol/L (98-107); POTASSIUM 4.2 mmol/L (3.5-5.1); SODIUM 136 mmol/L (136-145)
[2017-11-23 10:33] LABS: ALBUMIN 2.6 g/dl (3.4-5.0); ALK PHOS 80 U/L (45-117); ANION GAP 6 (8-16); BILIRUBIN,TOTAL 0.2 mg/dL (0.2-1.0); BLOOD UREA NITROGEN 17 mg/dL (7-18); CALCIUM 8.3 mg/dL (8.5-10.1); CO2 26 mmol/L (21-32); CREATININE 0.9 mg/dL (0.7-1.3); GLUCOSE,RANDOM 88 mg/dL (74-106); SGOT/AST 25 U/L (15-37); SGPT/ALT 18 U/L (12-78); TOT PROT 8.3 g/dl (6.4-8.2)
--- NOTE | 2017-11-23 10:38 | PN ---
S CIWA - CIWA Score Nausea/Vomitin-No Nausea/No Vomiting Muscle Tremors: 4-Moderate,w/Arms Extend Anxiety: 4-Mod. Anxious/Guarded Agitation: 4-Moderately Restless Paroxysmal Sweats: 1-Minimal Palms Moist Orientation: 0-Oriented Tacttile Disturbances: 0-None Auditory Disturbances: 0-None Visual Disturbances: 0-None Headache: 0-None Present CIWA-Ar Total Score: 13 S Progress Note (SOAP) Subjective: ANXIETY,SWEATS, FATIGUE,"JITTERY", RESTLESS. Objective: 11/23/17 10:32 Vital Signs 11/23/17 11/23/17 11/23/17 03:30 06:06 06:30 Temperature 98 F Pulse Rate 84 Respiratory 18 18 18 Rate Blood Pressure 104/69 11/23/17 09:04 Temperature 96.6 F L Pulse Rate 82 Respiratory 18 Rate Blood Pressure 128/79 Laboratory Tests 11/23/17 07:30 WBC 4.0 RBC 3.71 L Hgb 10.5 L Hct 31.3 L MCV 84.2 MCH 28.2 MCHC 33.5 RDW 14.0 Plt Count 297 MPV 7.2 L OTHER LABS PENDING Assessment: 11/23/17 10:38 WITHDRAWAL SX Plan: CONTINUE DETOX. INCREASE PO FLUIDS.
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
--- NOTE | 2017-11-23 22:11 | EKG ---
Test Reason : Blood Pressure : / mmHG Vent. Rate : 082 BPM Atrial Rate : 082 BPM P-R Int : 160 ms QRS Dur : 088 ms QT Int : 394 ms P-R-T Axes : 073 069 072 degrees QTc Int : 460 ms NORMAL SINUS RHYTHM NORMAL ECG WHEN COMPARED WITH ECG OF 01-SEP-2017 21:22, NO SIGNIFICANT CHANGE WAS FOUND Confirmed by DAISHA OBRIEN MD ([id number]) on 11/23/2017 10:11:01 PM Referred By: Pritesh Schroeder Confirmed By:DAISHA OBRIEN MD
[2017-11-23] MEDS: QUEtiapine FUMARATE 50 MG TABLET PO SCH (22:31)
[2017-11-23] MEDS: THIAMINE HCL 100 MG TABLET (FP) PO SCH (22:31)
[2017-11-24] MEDS: chlordiazePOXIDE HCL 25 MG CAPSULE PO SCH ×3 (05:02→17:21)
[2017-11-24] MEDS: FLUoxetine HCL 20 MG CAPSULE (FP) PO SCH (10:10)
[2017-11-24] MEDS: PRENATAL VITAMINS W/ FOLIC ACID TABLET (FP) PO SCH (10:10)
[2017-11-24] MEDS: NICOTINE 21 MG/24 HOURS TOPICAL PATCH TD SCH (10:11)
--- NOTE | 2017-11-24 10:57 | PN ---
S CIWA - CIWA Score Nausea/Vomitin-No Nausea/No Vomiting Muscle Tremors: 3 Anxiety: 4-Mod. Anxious/Guarded Agitation: 3 Paroxysmal Sweats: 1-Minimal Palms Moist Orientation: 0-Oriented Tacttile Disturbances: 0-None Auditory Disturbances: 0-None Visual Disturbances: 0-None Headache: 0-None Present CIWA-Ar Total Score: 11 BHS Progress Note (SOAP) Subjective: SLIGHT ANXIETY-LESS JITTERY,TREMORS. SWEATS/CHILLS,FATIGUE. Objective: 11/24/17 10:57 Vital Signs 11/24/17 11/24/17 11/24/17 03:30 06:06 06:30 Temperature 97.7 F Pulse Rate 78 Respiratory 18 18 18 Rate Blood Pressure 123/83 11/24/17 09:09 Temperature 97.4 F L Pulse Rate 83 Respiratory 20 Rate Blood Pressure 126/83 Laboratory Tests 11/23/17 11/23/17 11/23/17 07:30 07:30 07:30 WBC 4.0 RBC 3.71 L Hgb 10.5 L Hct 31.3 L MCV 84.2 MCH 28.2 MCHC 33.5 RDW 14.0 Plt Count 297 MPV 7.2 L Sodium 136 Potassium 4.2 Chloride 104 Carbon Dioxide 26 Anion Gap 6 L BUN 17 Creatinine 0.9 Creat Clearance w eGFR > 60 Random Glucose 88 Calcium 8.3 L Total Bilirubin 0.2 AST 25 ALT 18 D Alkaline Phosphatase 80 Total Protein 8.3 H Albumin 2.6 L RPR Titer Nonreactive Assessment: 11/24/17 10:58 WITHDRAWAL SX ANEMIA Plan: CONTINUE DETOX FEOSOL 325 MG PO DAILY
[2017-11-24] MEDS: FERROUS SO4 325 MG TABLET (FP) PO SCH (13:04)
[2017-11-24] MEDS: QUEtiapine FUMARATE 50 MG TABLET PO SCH (22:17)
[2017-11-24] MEDS: chlordiazePOXIDE 5 MG CAPSULE PO SCH (22:17)
[2017-11-24] MEDS: THIAMINE HCL 100 MG TABLET (FP) PO SCH (22:17)
[2017-11-24 23:05] LABS: URINE APPEARANCE CLEAR; URINE BILIRUBIN NEGATIVE (<2.0 mg/dL); URINE COLOR STRAW; URINE GLUCOSE (UA) NEGATIVE (NEGATIVE); URINE KETONE NEGATIVE (NEGATIVE); URINE LEUK ESTERASE NEGATIVE (NEGATIVE); URINE NITRITE NEGATIVE (NEGATIVE); URINE PROTEIN NEGATIVE (NEGATIVE); URINE UROBILINOGEN NEGATIVE mg/dL (0.2-1.0)
[2017-11-25] MEDS: chlordiazePOXIDE 5 MG CAPSULE PO SCH ×2 (05:47→10:22)
[2017-11-25] MEDS: FERROUS SO4 325 MG TABLET (FP) PO SCH (07:49)
[2017-11-25 09:06] VITALS: BP 134/87; PULSE 76; TEMP 97.1
--- NOTE | 2017-11-25 09:58 | PN ---
BHS Progress Note (SOAP) Subjective: ALERT O X 3. PT RESTING IN BED AND REPORTS DETOX PROCEEDING WELL. LESS ANXIOUS AND JITTERINESS RESOLVED. Objective: 11/25/17 09:57 Vital Signs 11/25/17 11/25/17 11/25/17 03:29 06:08 09:05 Temperature 98.5 F 97.1 F L Pulse Rate 80 76 Respiratory 18 18 18 Rate Blood Pressure 137/82 134/87 Laboratory Tests 11/23/17 11/23/17 11/23/17 07:30 07:30 07:30 WBC 4.0 RBC 3.71 L Hgb 10.5 L Hct 31.3 L MCV 84.2 MCH 28.2 MCHC 33.5 RDW 14.0 Plt Count 297 MPV 7.2 L Sodium 136 Potassium 4.2 Chloride 104 Carbon Dioxide 26 Anion Gap 6 L BUN 17 Creatinine 0.9 Creat Clearance w eGFR > 60 Random Glucose 88 Calcium 8.3 L Total Bilirubin 0.2 AST 25 ALT 18 D Alkaline Phosphatase 80 Total Protein 8.3 H Albumin 2.6 L Urine Color Urine Appearance Urine pH Ur Specific [place] Urine Protein Urine Glucose (UA) Urine Ketones Urine Blood Urine Nitrite Urine Bilirubin Urine Urobilinogen Ur Leukocyte Esterase RPR Titer Nonreactive 11/24/17 19:59 WBC RBC Hgb Hct MCV MCH MCHC RDW Plt Count MPV Sodium Potassium Chloride Carbon Dioxide Anion Gap BUN Creatinine Creat Clearance w eGFR Random Glucose Calcium Total Bilirubin AST ALT Alkaline Phosphatase Total Protein Albumin Urine Color Straw Urine Appearance Clear Urine pH 5.0 Ur Specific [place] 1.006 Urine Protein Negative Urine Glucose (UA) Negative Urine Ketones Negative Urine Blood Negative Urine Nitrite Negative Urine Bilirubin Negative Urine Urobilinogen Negative Ur Leukocyte Esterase Negative RPR Titer Assessment: 11/25/17 09:57 DECREASED WITHDRAWAL SX Plan: CONTINUE DETOX
[2017-11-25] MEDS: PRENATAL VITAMINS W/ FOLIC ACID TABLET (FP) PO SCH (10:21)
[2017-11-25] MEDS: FLUoxetine HCL 20 MG CAPSULE (FP) PO SCH (10:21)
[2017-11-25] MEDS: NICOTINE 21 MG/24 HOURS TOPICAL PATCH TD SCH (10:22)
--- NOTE | 2017-11-25 13:19 | DS ---
[facility] Detox Discharge Summary Admission Date: 11/22/17 Discharge Date: 11/25/17 - History Present History: Alcohol Dependence, Cocaine Dependence Additional Comments: PT IS ALERT O X 3. NAD. PT INSTRUCTED TO FOLLOW UP WITH HIS PRIMARY CARE DOCTOR FOR MEDICAL MANAGEMENT OF COMORBID CONDITIONS. Pertinent Past History: SEE DX BELOW - Physical Exam Results Vital Signs: Vital Signs Temperature 97.1 F L 11/25/17 09:05 Pulse Rate 76 11/25/17 09:05 Respiratory Rate 18 11/25/17 09:05 Blood Pressure 134/87 11/25/17 09:05 O2 Sat by Pulse Oximetry (%) Pertinent Admission Physical Exam Findings: WITHDRAWAL SX Laboratory Tests 11/23/17 11/23/17 11/23/17 07:30 07:30 07:30 WBC 4.0 RBC 3.71 L Hgb 10.5 L Hct 31.3 L MCV 84.2 MCH 28.2 MCHC 33.5 RDW 14.0 Plt Count 297 MPV 7.2 L Sodium 136 Potassium 4.2 Chloride 104 Carbon Dioxide 26 Anion Gap 6 L BUN 17 Creatinine 0.9 Creat Clearance w eGFR > 60 Random Glucose 88 Calcium 8.3 L Total Bilirubin 0.2 AST 25 ALT 18 D Alkaline Phosphatase 80 Total Protein 8.3 H Albumin 2.6 L Urine Color Urine Appearance Urine pH Ur Specific [place] Urine Protein Urine Glucose (UA) Urine Ketones Urine Blood Urine Nitrite Urine Bilirubin Urine Urobilinogen Ur Leukocyte Esterase RPR Titer Nonreactive 11/24/17 19:59 WBC RBC Hgb Hct MCV MCH MCHC RDW Plt Count MPV Sodium Potassium Chloride Carbon Dioxide Anion Gap BUN Creatinine Creat Clearance w eGFR Random Glucose Calcium Total Bilirubin AST ALT Alkaline Phosphatase Total Protein Albumin Urine Color Straw Urine Appearance Clear Urine pH 5.0 Ur Specific [place] 1.006 Urine Protein Negative Urine Glucose (UA) Negative Urine Ketones Negative Urine Blood Negative Urine Nitrite Negative Urine Bilirubin Negative Urine Urobilinogen Negative Ur Leukocyte Esterase Negative RPR Titer - Treatment Hospital Course: Detox Protocol Followed, Detoxed Safely, Responded well, Discharged Condition Good - Medication Discharge Medications: Ambulatory Orders Amlodipine Besylate 5 mg PO DAILY 09/01/17 Aspirin [Aspirin EC] 81 mg PO DAILY 09/01/17 Atenolol [Tenormin -] 25 mg PO DAILY 09/01/17 Elviteg/Cob/Emtri/Tenof Alafen [Genvoya (Non-Formulary)] 150 mg PO DAILY Fluoxetine HCl 20 mg PO DAILY 09/01/17 Sulfamethoxazole/Trimethoprim [Sulfamethoxazole-Tmp Ds Tablet] 1 tab PO DAILY Quetiapine Fumarate [Seroquel] 100 mg PO HS 11/23/17 - Diagnosis (1) Alcohol dependence with uncomplicated withdrawal Status: Acute (2) Cocaine dependence, uncomplicated Status: Acute (3) Methamphetamine dependence Status: Acute (4) Nicotine dependence Status: Acute Qualifiers: Nicotine product type: cigarettes Substance use status: in withdrawal Qualified Code(s): F17.213 - Nicotine dependence, cigarettes, with withdrawal (5) HIV (human immunodeficiency virus infection) Status: Chronic (6) Weight loss Status: Acute (7) Anemia Status: Acute Qualifiers: Anemia type: iron deficiency (8) Noncompliance with medication regimen Status: Chronic - AMA Did Patient Leave Against Medical Advice: Yes
[2017-11-25] MEDS ORDERED: chlordiazePOXIDE HCL 10 MG CAPSULE PO SCH (23:00)
== END 2017-11-25 13:10 | disposition home or self-care (01) | DRG 774 ==
LOC: YASAS 16:59 → Y3N 19:07
PROVIDERS: ADMIT Family Medicine Addiction Medicine; ATTEND Family Medicine Addiction Medicine
PROC: HZ2ZZZZ Detoxification Services for Substance Abuse Treatment (ICD-10-PCS; principal; 2017-11-22)
DX: F10.230 Alcohol dependence with withdrawal, uncomplicated (principal); F14.10 Cocaine abuse, uncomplicated; F15.20 Other stimulant dependence, uncomplicated; F17.213 Nicotine dependence, cigarettes, with withdrawal; F43.10 Post-traumatic stress disorder, unspecified; F19.24 Other psychoactive substance dependence with psychoactive substance-induced mood disorder; Z21 Asymptomatic human immunodeficiency virus [HIV] infection status; D50.8 Other iron deficiency anemias; R63.4 Abnormal weight loss; Z68.21 Body mass index [BMI] 21.0-21.9, adult; Z86.19 Personal history of other infectious and parasitic diseases; Z79.82 Long term (current) use of aspirin; Z91.14 Patient's other noncompliance with medication regimen; Z91.5 Personal history of self-harm
CPT/HCPCS: 36415; 80053; 81003; 85027; 86593; 93005; 93010

== ENCOUNTER 2018-07-20 12:37 | Inpatient (IN) | payer OTHER ==
[2018-07-20 13:28] VITALS: BMI 20.3
--- NOTE | 2018-07-20 15:04 | HP ---
CIWA Score Nausea/Vomitin-No Nausea/No Vomiting Muscle Tremors: 4-Moderate,w/Arms Extend Anxiety: 3 Agitation: 3 Paroxysmal Sweats: 1-Minimal Palms Moist Orientation: 0-Oriented Tacttile Disturbances: 1-Very Mild Itch/Numbness Auditory Disturbances: 0-None Visual Disturbances: 0-None Headache: 0-None Present CIWA-Ar Total Score: 12 - Admission Criteria OASAS Guidelines: Admission for Medically Managed Detox: Requires at least one of the followin. CIWA greater than 12 2. Seizures within the past 24 hours 3. Delirium tremens within the past 24 hours 4. Hallucinations within the past 24 hours 5. Acute intervention needed for co occurring medical disorder 6. Acute intervention needed for co occurring psychiatric disorder 7. Severe withdrawal that cannot be handled at a lower level of care (continued vomiting, continued diarrhea, abnormal vital signs) requiring intravenous medication and/or fluids 8. Patient presents the following: CIWA greater than 12 Admission Criteria Met: Admission criteria met Admission ROS [facility] Chief Complaint: " I need detox" Allergies/Adverse Reactions: Allergies Allergy/AdvReac Type Severity Reaction Status Date / Time No Known Allergies Allergy Verified 11/22/17 18:44 History of Present Illness: 52 yo male with hx of alcohol, crystal meth (PO / IV) , marijuana dependence is here seeking detox d/t withdrawal sx, this is one of multiple admissions, patient self referred. Denies any recent ER visits or hospitalizations. Last detox [facility] October 2017.PMHX: HTN, HIV+ depression and anxiety, non-compliant with medical treatment. Denies suicidal / homicidal ideation . Reports past hx of suicide attempts. Longest period of sobriety 18 months. Exam Limitations: No Limitations - Ebola screening Have you traveled outside of the country in the last 21 days: No Have you had contact with anyone from an Ebola affected area: No Have you been sick,other than usual withdrawal symptoms: No - Review of Systems Constitutional: Loss of Appetite, Unintentional Wgt. Loss (20 lbs) EENT: reports: No Symptoms Reported Respiratory: reports: No Symptoms reported Cardiac: reports: Lightheadedness GI: reports: Poor Appetite, Poor Fluid Intake : reports: No Symptoms Reported Musculoskeletal: reports: Joint Pain (left thumb no injury) Integumentary: reports: Other (chronic fungus on right thumb nail) Neuro: reports: Weakness Endocrine: reports: Increased Thirst Hematology: reports: See HPI, Anemia Psychiatric: reports: Orientated x3, Anxious Other Systems: Reviewed and Negative Patient History - Patient Medical History Hx Anemia: No Hx Asthma: No Hx Chronic Obstructive Pulmonary Disease (COPD): No Hx Cancer: No Hx Cardiac Disorders: No Hx Congestive Heart Failure: No Hx Hypertension: Yes (NON COMPLIANT BUT TAKES AMLODIPINE 10 MG) Hx Hypercholesterolemia: No Hx Pacemaker: No HX Cerebrovascular Accident: No Hx Seizures: No Hx Dementia: No Hx Diabetes: No Hx Gastrointestinal Disorders: No Hx Liver Disease: No Hx Genitourinary Disorders: No Hx Sexually Transmitted Disorders: Yes (SYPHILIS & GONORRHEA TREATMENT IN THE PAST) Hx Renal Disease (ESRD): No Hx Thyroid Disease: No Hx Human Immunodeficiency Virus (HIV): Yes (DX 1998 RX GENVOYA NON COMPLAINT FOR OVER A YEAR) Hx Hepatitis C: No Hx Depression: Yes (PROZAC NON COMPLAINT) Hx Suicide Attempt: Yes (OVERDOSED ON PILLS IN 2007) Hx Bipolar Disorder: No Hx Schizophrenia: No - Patient Surgical History Past Surgical History: Yes Hx Neurologic Surgery: No Hx Cataract Extraction: No Hx Cardiac Surgery: No Hx Lung Surgery: No Hx Breast Surgery: No Hx Breast Biopsy: No Hx Abdominal Surgery: No Hx Appendectomy: No Hx Cholecystectomy: No Hx Genitourinary Surgery: No Hx Section: No Hx Orthopedic Surgery: No Hx Hysterectomy: No Other Surgical History: TONSILLECTOMY A CHILD Anesthesia Reaction: No - PPD History Previous Implant?: No Documented Results: Negative w/proof Date: 09/03/17 PPD to be Administered?: Yes - Smoking Cessation Smoking history: Current every day smoker Have you smoked in the past 12 months: Yes Aproximately how many cigarettes per day: 20 Cigars Per Day: 0 Hx Chewing Tobacco Use: No Initiated information on smoking cessation: Yes 'Breaking Loose' booklet given: 07/20/18 - Substance & Tx. History Hx Alcohol Use: Yes Hx Substance Use: Yes Substance Use Type: Alcohol Hx Substance Use Treatment: Yes (detox [facility] October 2017) - Substances Abused alcohol Route: Oral Frequency: Daily Amount used: 1 - 2 pints Age of first use: 20 Date of Last Use: 07/19/18 Marijuana/Hashish Route: Smoking Frequency: 3-6 times per week Amount used: 1 blunt Age of first use: 15 Date of Last Use: 07/18/18 crystal meth Route: smoking / injection Frequency: 3-6 times per week Amount used: $120 - 200 Age of first use: 50 Date of Last Use: 07/19/18 Family Disease History - Family Disease History Family Disease History: Diabetes: Mother, Other: Father (DRUG AND ALCOHOL) Admission Physical Exam [facility] - Vital Signs Vital Signs: Vital Signs - 24 hr 07/20/18 13:27 Temperature 97.6 F Pulse Rate 77 Respiratory 20 Rate Blood Pressure 143/103 H - Physical General Appearance: Yes: Appropriately Dressed, Mild Distress, Thin, Anxious HEENTM: Yes: EOMI, Hearing grossly Normal, Normal ENT Inspection, Normocephalic , Normal Voice, DIANA, Pharynx Normal, Tm's normal, Other (cheilithis) Respiratory: Yes: Chest Non-Tender, Lungs Clear, Normal Breath Sounds, No Respiratory Distress, No Accessory Muscle Use Neck: Yes: Within Normal Limits Breast: Yes: Breast Exam Deferred Cardiology: Yes: Regular Rhythm, Regular Rate Abdominal: Yes: Normal Bowel Sounds, Non Tender, Flat, Soft Genitourinary: Yes: Within Normal Limits Back: Yes: Normal Inspection Musculoskeletal: Yes: full range of Motion, Gait Steady, Pelvis Stable Extremities: Yes: Normal Capillary Refill, Normal Inspection, Normal Range of Motion, Non-Tender Neurological: Yes: fire investigator II-XII NML intact, Fully Oriented, Alert, Motor Strength 5/5, Depressed Affect Integumentary: Yes: Normal Color, Warm, Moist, Other (tinea) Lymphatic: Yes: Within Normal Limits - Diagnostic (1) Hypertension Current Visit: Yes Status: Chronic Qualifiers: Hypertension type: essential hypertension Qualified Code(s): I10 - Essential (primary) hypertension (2) Elevated blood pressure reading with diagnosis of hypertension Current Visit: Yes Status: Acute (3) Alcohol dependence with uncomplicated withdrawal Current Visit: Yes Status: Acute (4) Anemia Current Visit: Yes Status: Chronic Qualifiers: Anemia type: iron deficiency (5) Cocaine dependence, uncomplicated Current Visit: Yes Status: Acute (6) Insomnia Current Visit: Yes Status: Acute Qualifiers: Insomnia type: unspecified Qualified Code(s): G47.00 - Insomnia, unspecified (7) Methamphetamine dependence Current Visit: Yes Status: Acute (8) Nicotine dependence Current Visit: Yes Status: Acute Qualifiers: Nicotine product type: cigarettes Substance use status: in withdrawal Qualified Code(s): F17.213 - Nicotine dependence, cigarettes, with withdrawal (9) Weight loss Current Visit: Yes Status: Acute (10) HIV (human immunodeficiency virus infection) Current Visit: Yes Status: Chronic (11) Noncompliance with medication regimen Current Visit: Yes Status: Chronic Cleared for Admission S - Detox or Rehab S Level of Care: Medically Managed Detox Regimen/Protocol: Librium S Breath Alcohol Content Breath Alcohol Content: 0.006 Urine Drug Screen - Results Drug Screen Negative: No Urine Drug Screen Results: THC-Marijuana Inpatient Rehab Admission - Rehab Decision to Admit Inpatient rehab admission?: No
[2018-07-20] MEDS ORDERED: chlordiazePOXIDE HCL 25 MG CAPSULE PO PRN (15:12)
[2018-07-20] MEDS ORDERED: MAGNESIUM CITRATE 300 ML BOTTLE PO PRN (15:12)
[2018-07-20] MEDS ORDERED: IBUPROFEN 400 MG TABLET (FP) PO PRN (15:12)
[2018-07-20] MEDS ORDERED: LOPERAMIDE HCL 2 MG CAPSULE PO PRN (15:12)
[2018-07-20] MEDS ORDERED: hydrOXYzine PAMOATE 50 MG CAPSULE (FP) PO PRN (15:12)
[2018-07-20] MEDS ORDERED: MAG HYDROX/AL HYDROX/SIMETH 30 ML UNIT-DOSE CUP PO PRN (15:12)
[2018-07-20] MEDS ORDERED: NICOTINE POLACRILEX 2 MG GUM BC PRN (15:12)
[2018-07-20] MEDS ORDERED: MAGNESIUM HYDROX 2400MG/30ML ORAL SUSPENSION 30 ML CUP PO PRN (15:12)
[2018-07-20] MEDS ORDERED: ACETAMINOPHEN 325 MG TABLET (FP) PO PRN (15:12)
[2018-07-20] MEDS ORDERED: P-EPHED 60MG/TRIPROLIDI 2.5MG TABLET PO PRN (15:12)
[2018-07-20] MEDS ORDERED: MENTHOL/PHENOL 1 EACH UD MM PRN (15:12)
[2018-07-20] MEDS ORDERED: guaiFENesin/D-METHORPHAN HB 10 ML UNIT-DOSE CUPS PO PRN (15:12)
[2018-07-20] MEDS ORDERED: cloNIDine HCL 0.1 MG TABLET PO ONE (18:45)
[2018-07-20] MEDS ORDERED: MELATONIN 5 MG TABLETS PO PRN (22:00)
[2018-07-20] MEDS: chlordiazePOXIDE HCL 25 MG CAPSULE PO SCH (22:42)
[2018-07-20] MEDS: THIAMINE HCL 100 MG TABLET (FP) PO SCH (22:42)
[2018-07-20 23:43] LABS: URINE APPEARANCE CLEAR; URINE BILIRUBIN NEGATIVE (<2.0 mg/dL); URINE COLOR LTYELLOW; URINE GLUCOSE (UA) NEGATIVE (NEGATIVE); URINE KETONE NEGATIVE (NEGATIVE); URINE LEUK ESTERASE NEGATIVE (NEGATIVE); URINE NITRITE NEGATIVE (NEGATIVE); URINE PROTEIN NEGATIVE (NEGATIVE); URINE UROBILINOGEN NEGATIVE mg/dL (0.2-1.0)
[2018-07-21] MEDS: chlordiazePOXIDE HCL 25 MG CAPSULE PO SCH ×4 (05:31→22:57)
[2018-07-21] MEDS: NICOTINE 14 MG/24 HOURS TOPICAL PATCH TD SCH (10:48)
[2018-07-21] MEDS: amLODIPine BESYLATE 5 MG TABLET (FP) PO SCH (10:48)
[2018-07-21] MEDS: PRENATAL VITAMINS W/ FOLIC ACID TABLET (FP) PO SCH (10:48)
[2018-07-21 11:03] LABS: HEMOGLOBIN 12.1 GM/dL (11.7-16.9); MCH 29.9 pg (25.7-33.7); MCHC 34.4 g/dl (32.0-35.9); MEAN CELL VOLUME 86.8 fl (80-96); MEAN PLT VOLUME 8.6 fl (7.5-11.1); PLATELET COUNT 194 K/MM3 (134-434); RBC 4.04 M/mm3 (4.00-5.60); RDW 14.3 % (11.9-15.9); WHITE BLOOD COUNT 2.5 K/mm3 (4.0-10.0)
[2018-07-21 11:26] LABS: ALBUMIN 3.4 g/dl (3.4-5.0); ALK PHOS 107 U/L (45-117); ANION GAP 6 MMOL/L (8-16); BILIRUBIN,TOTAL 0.2 mg/dL (0.2-1); BLOOD UREA NITROGEN 8 mg/dL (7-18); CALCIUM 9.1 mg/dL (8.5-10.1); CHLORIDE 101 mmol/L (98-107); CO2 30 mmol/L (21-32); GLUCOSE,RANDOM 79 mg/dL (74-106); POTASSIUM 3.6 mmol/L (3.5-5.1); SGOT/AST 24 U/L (15-37); SGPT/ALT 21 U/L (13-61); SODIUM 138 mmol/L (136-145); TOT PROT 8.5 g/dl (6.4-8.2)
--- NOTE | 2018-07-21 11:36 | PN ---
[facility] CIWA - CIWA Score Nausea/Vomitin-No Nausea/No Vomiting Muscle Tremors: 2 Anxiety: 3 Agitation: 2 Paroxysmal Sweats: 1-Minimal Palms Moist Orientation: 1-Uncertain about Date Tacttile Disturbances: 0-None Auditory Disturbances: 0-None Visual Disturbances: 0-None Headache: 0-None Present CIWA-Ar Total Score: 9 S Progress Note (SOAP) Subjective: tremor sweating restlessness Objective: 07/21/18 11:31 Vital Signs Temperature 98.2 F 07/21/18 10:49 Pulse Rate 110 H 07/21/18 10:49 Respiratory Rate 18 07/21/18 10:49 Blood Pressure 121/84 07/21/18 10:49 O2 Sat by Pulse Oximetry (%) Laboratory Last Values WBC 2.5 K/mm3 (4.0-10.0) L 07/21/18 05:45 RBC 4.04 M/mm3 (4.00-5.60) 07/21/18 05:45 Hgb 12.1 GM/dL (11.7-16.9) 07/21/18 05:45 Hct 35.0 % (35.4-49) L 07/21/18 05:45 MCV 86.8 fl (80-96) 07/21/18 05:45 MCH 29.9 pg (25.7-33.7) 07/21/18 05:45 MCHC 34.4 g/dl (32.0-35.9) 07/21/18 05:45 RDW 14.3 % (11.9-15.9) 07/21/18 05:45 Plt Count 194 K/MM3 (134-434) D 07/21/18 05:45 MPV 8.6 fl (7.5-11.1) D 07/21/18 05:45 Sodium 138 mmol/L (136-145) 07/21/18 05:45 Potassium 3.6 mmol/L (3.5-5.1) 07/21/18 05:45 Chloride 101 mmol/L (98-107) 07/21/18 05:45 Carbon Dioxide 30 mmol/L (21-32) 07/21/18 05:45 Anion Gap 6 MMOL/L (8-16) L 07/21/18 05:45 BUN 8 mg/dL (7-18) 07/21/18 05:45 Creatinine 1.0 mg/dL (0.55-1.3) 07/21/18 05:45 Creat Clearance w eGFR > 60 (>60) 07/21/18 05:45 Random Glucose 79 mg/dL (74-106) 07/21/18 05:45 Calcium 9.1 mg/dL (8.5-10.1) 07/21/18 05:45 Total Bilirubin 0.2 mg/dL (0.2-1) 07/21/18 05:45 AST 24 U/L (15-37) 07/21/18 05:45 ALT 21 U/L (13-61) 07/21/18 05:45 Alkaline Phosphatase 107 U/L (45-117) 07/21/18 05:45 Total Protein 8.5 g/dl (6.4-8.2) H 07/21/18 05:45 Albumin 3.4 g/dl (3.4-5.0) 07/21/18 05:45 Urine Color Ltyellow 07/20/18 22:43 Urine Appearance Clear 07/20/18 22:43 Urine pH 5.0 (5.0-8.0) 07/20/18 22:43 Ur Specific [place] 1.011 (1.010-1.035) 07/20/18 22:43 Urine Protein Negative (NEGATIVE) 07/20/18 22:43 Urine Glucose (UA) Negative (NEGATIVE) 07/20/18 22:43 Urine Ketones Negative (NEGATIVE) 07/20/18 22:43 Urine Blood Negative (NEGATIVE) 07/20/18 22:43 Urine Nitrite Negative (NEGATIVE) 07/20/18 22:43 Urine Bilirubin Negative (<2.0 mg/dL) 07/20/18 22:43 Urine Urobilinogen Negative mg/dL (0.2-1.0) 07/20/18 22:43 Ur Leukocyte Esterase Negative (NEGATIVE) 07/20/18 22:43 RPR Titer Nonreactive (NONREACTIVE) 07/21/18 05:45 lab noted low wbc +HIV treated with genvoya last filled 30 days 07/05/18 encourage the patient to bring in HIV medication for continuity of care Assessment: 07/21/18 11:35 withdrawal sx Plan: continue detox
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
--- NOTE | 2018-07-21 13:23 | PN ---
S Progress Note Note: Vital Signs Temperature 98.2 F 07/21/18 10:49 Pulse Rate 110 H 07/21/18 10:49 Respiratory Rate 18 07/21/18 10:49 Blood Pressure 121/84 07/21/18 10:49 O2 Sat by Pulse Oximetry (%) Patient was evaluated by transformation architect, rec: ensure PO BID. order place are per transformation architect rec continue to monitor
[2018-07-21] MEDS: THIAMINE HCL 100 MG TABLET (FP) PO SCH (22:57)
[2018-07-21] MEDS: QUEtiapine FUMARATE 100 MG TABLET (FP) PO SCH (22:57)
[2018-07-22] MEDS: chlordiazePOXIDE HCL 25 MG CAPSULE PO SCH ×4 (05:28→17:26)
[2018-07-22] MEDS: amLODIPine BESYLATE 5 MG TABLET (FP) PO SCH (10:50)
[2018-07-22] MEDS: PRENATAL VITAMINS W/ FOLIC ACID TABLET (FP) PO SCH (10:50)
[2018-07-22] MEDS: NICOTINE 14 MG/24 HOURS TOPICAL PATCH TD SCH (10:51)
--- NOTE | 2018-07-22 11:54 | PN ---
S CIWA - CIWA Score Nausea/Vomitin-No Nausea/No Vomiting Muscle Tremors: 1-None Visible, but [place] Anxiety: 1-Mildly Anxious Agitation: 1-Slight > Activity Paroxysmal Sweats: 1-Minimal Palms Moist Orientation: 0-Oriented Tacttile Disturbances: 0-None Auditory Disturbances: 0-None Visual Disturbances: 0-None Headache: 1-Very Mild CIWA-Ar Total Score: 5 [facility] Progress Note (SOAP) Subjective: patient reported that his drug of choice is meth amphetamine feeling better today encourage the patient to discuss aftercare chemical rehab placement mild tremor less sweating sleep better at night Objective: 07/22/18 11:52 Vital Signs Temperature 97.9 F 07/22/18 09:32 Pulse Rate 87 07/22/18 09:32 Respiratory Rate 18 07/22/18 09:32 Blood Pressure 110/67 07/22/18 09:32 O2 Sat by Pulse Oximetry (%) Laboratory Last Values WBC 2.5 K/mm3 (4.0-10.0) L 07/21/18 05:45 RBC 4.04 M/mm3 (4.00-5.60) 07/21/18 05:45 Hgb 12.1 GM/dL (11.7-16.9) 07/21/18 05:45 Hct 35.0 % (35.4-49) L 07/21/18 05:45 MCV 86.8 fl (80-96) 07/21/18 05:45 MCH 29.9 pg (25.7-33.7) 07/21/18 05:45 MCHC 34.4 g/dl (32.0-35.9) 07/21/18 05:45 RDW 14.3 % (11.9-15.9) 07/21/18 05:45 Plt Count 194 K/MM3 (134-434) D 07/21/18 05:45 MPV 8.6 fl (7.5-11.1) D 07/21/18 05:45 Sodium 138 mmol/L (136-145) 07/21/18 05:45 Potassium 3.6 mmol/L (3.5-5.1) 07/21/18 05:45 Chloride 101 mmol/L (98-107) 07/21/18 05:45 Carbon Dioxide 30 mmol/L (21-32) 07/21/18 05:45 Anion Gap 6 MMOL/L (8-16) L 07/21/18 05:45 BUN 8 mg/dL (7-18) 07/21/18 05:45 Creatinine 1.0 mg/dL (0.55-1.3) 07/21/18 05:45 Creat Clearance w eGFR > 60 (>60) 07/21/18 05:45 Random Glucose 79 mg/dL (74-106) 07/21/18 05:45 Calcium 9.1 mg/dL (8.5-10.1) 07/21/18 05:45 Total Bilirubin 0.2 mg/dL (0.2-1) 07/21/18 05:45 AST 24 U/L (15-37) 07/21/18 05:45 ALT 21 U/L (13-61) 07/21/18 05:45 Alkaline Phosphatase 107 U/L (45-117) 07/21/18 05:45 Total Protein 8.5 g/dl (6.4-8.2) H 07/21/18 05:45 Albumin 3.4 g/dl (3.4-5.0) 07/21/18 05:45 Urine Color Ltyellow 07/20/18 22:43 Urine Appearance Clear 07/20/18 22:43 Urine pH 5.0 (5.0-8.0) 07/20/18 22:43 Ur Specific [place] 1.011 (1.010-1.035) 07/20/18 22:43 Urine Protein Negative (NEGATIVE) 07/20/18 22:43 Urine Glucose (UA) Negative (NEGATIVE) 07/20/18 22:43 Urine Ketones Negative (NEGATIVE) 07/20/18 22:43 Urine Blood Negative (NEGATIVE) 07/20/18 22:43 Urine Nitrite Negative (NEGATIVE) 07/20/18 22:43 Urine Bilirubin Negative (<2.0 mg/dL) 07/20/18 22:43 Urine Urobilinogen Negative mg/dL (0.2-1.0) 07/20/18 22:43 Ur Leukocyte Esterase Negative (NEGATIVE) 07/20/18 22:43 RPR Titer Nonreactive (NONREACTIVE) 07/21/18 05:45 lab noted encourage the patient follow up with hiv infectious disease specialist for low wbc Assessment: 07/22/18 11:53 withdrawal sx Plan: continue detox
--- NOTE | 2018-07-22 16:24 | PN ---
[facility] Progress Note Note: patient reported that he dose not drink alcohol does not use heroin but methamphetamine patient wants to go rehab patient demands securities underwriter transfer him to another rehab immediately that the counselor refer him to verito priest patient is not satisfy about the verito priest abusive language threatening gesture disturb therapeutic environment yelling security was called encourage safety contract for non abuse non violent behavior
[2018-07-22] MEDS: QUEtiapine FUMARATE 100 MG TABLET (FP) PO SCH (22:32)
[2018-07-22] MEDS: THIAMINE HCL 100 MG TABLET (FP) PO SCH (22:32)
[2018-07-22] MEDS: chlordiazePOXIDE 5 MG CAPSULE PO SCH (22:33)
[2018-07-22 22:50] VITALS: BP 122/80; PULSE 92; TEMP 97.8
[2018-07-23] MEDS: chlordiazePOXIDE 5 MG CAPSULE PO SCH ×2 (07:45→11:52)
[2018-07-23] MEDS: NICOTINE 14 MG/24 HOURS TOPICAL PATCH TD SCH (11:45)
[2018-07-23] MEDS: amLODIPine BESYLATE 5 MG TABLET (FP) PO SCH (11:51)
[2018-07-23] MEDS: PRENATAL VITAMINS W/ FOLIC ACID TABLET (FP) PO SCH (11:51)
--- NOTE | 2018-07-23 16:36 | PN ---
[facility] Progress Note (SOAP) Subjective: Patient appears anxious because his Aftercare Plan is still under investigation by His Music Historian. However, Patient denies current Withdrawal / Detox symptoms and reports that he feels well overall. Objective: PATIENT A & O X 3, OBSERVED AMBULATING ON UNIT. IN NO ACUTE DISTRESS. 07/23/18 16:34 Vital Signs Temperature 97.8 F 07/22/18 22:48 Pulse Rate 92 H 07/22/18 22:48 Respiratory Rate 18 07/23/18 03:30 Blood Pressure 122/80 07/22/18 22:48 O2 Sat by Pulse Oximetry (%) Laboratory Tests 07/20/18 07/21/18 07/21/18 22:43 05:45 05:45 WBC 2.5 L RBC 4.04 Hgb 12.1 Hct 35.0 L MCV 86.8 MCH 29.9 MCHC 34.4 RDW 14.3 Plt Count 194 D MPV 8.6 D Sodium 138 Potassium 3.6 Chloride 101 Carbon Dioxide 30 Anion Gap 6 L BUN 8 Creatinine 1.0 Creat Clearance w eGFR > 60 Random Glucose 79 Calcium 9.1 Total Bilirubin 0.2 AST 24 ALT 21 Alkaline Phosphatase 107 Total Protein 8.5 H Albumin 3.4 Urine Color Ltyellow Urine Appearance Clear Urine pH 5.0 Ur Specific [place] 1.011 Urine Protein Negative Urine Glucose (UA) Negative Urine Ketones Negative Urine Blood Negative Urine Nitrite Negative Urine Bilirubin Negative Urine Urobilinogen Negative Ur Leukocyte Esterase Negative RPR Titer 07/21/18 05:45 WBC RBC Hgb Hct MCV MCH MCHC RDW Plt Count MPV Sodium Potassium Chloride Carbon Dioxide Anion Gap BUN Creatinine Creat Clearance w eGFR Random Glucose Calcium Total Bilirubin AST ALT Alkaline Phosphatase Total Protein Albumin Urine Color Urine Appearance Urine pH Ur Specific [place] Urine Protein Urine Glucose (UA) Urine Ketones Urine Blood Urine Nitrite Urine Bilirubin Urine Urobilinogen Ur Leukocyte Esterase RPR Titer Nonreactive LABS NOTED. Assessment: 07/23/18 16:35 COMPLETION OF DETOX REGIMEN. Plan: PATIENT GRANTED EARLY DISCHARGE FROM DETOX UNIT SOP THAT HE MAY PROCEED ON TO NEXT STEP OF AFTERCARE.
--- NOTE | 2018-07-23 16:39 | DS ---
[facility] Detox Discharge Summary Admission Date: 07/20/18 Discharge Date: 07/23/18 - History Present History: Alcohol Dependence, Cannabis Dependence, Cocaine Dependence Additional Comments: PATIENT DECLINED OFFER OF REHAB BED AT BOTH [facility] ([place], [place]) AND AT [facility] ([place], [place]). PATIENT REQUESTED REHAB BED AT [facility] ([place], [place]), BUT WAS INFORMED THAT NO BED IS AVAILABLE AT THAT FACILITY AT THAT TIME. PATIENT ALSO OFFERED ALTERNATE OPTION OF '[facility]' ([place], [place]) POSSIBLE AFTERCARE OPTION. PATIENT THEN ELECTED TO LEAVE UNIT TO GO HOME AND NOTED THAT HE WOULD PURSUE REHAB ADMISSION ON HIS OWN AT A LATER DATE. PATIENT DECLINED OFFER OF MEDICATION PRESCRIPTION FOR HOME MEDICATION AT TIME OF DISCHARGE FROM DETOX, NOTING THAT HE CURRENTLY HAS ADEQUATE SUPPLIES OF ALL PRESCRIBED HOME MEDICATIONS AT HOME. PATIENT WAS DISCHARGED FROM DETOX UNIT IN STABLE MEDICAL CONDITION. Pertinent Past History: HTN, H.I.V., Nicotine Dependence, History of Anemia, Insomnia, Weight Loss, Methamphetamine Dependence, History of P.T.S.D., Major Depressive Disorder. - Physical Exam Results Vital Signs: Vital Signs Temperature 97.8 F 07/22/18 22:48 Pulse Rate 92 H 07/22/18 22:48 Respiratory Rate 18 07/23/18 03:30 Blood Pressure 122/80 07/22/18 22:48 O2 Sat by Pulse Oximetry (%) Pertinent Admission Physical Exam Findings: WITHDRAWAL SYMPTOMS. Laboratory Tests 07/20/18 07/21/18 07/21/18 22:43 05:45 05:45 WBC 2.5 L RBC 4.04 Hgb 12.1 Hct 35.0 L MCV 86.8 MCH 29.9 MCHC 34.4 RDW 14.3 Plt Count 194 D MPV 8.6 D Sodium 138 Potassium 3.6 Chloride 101 Carbon Dioxide 30 Anion Gap 6 L BUN 8 Creatinine 1.0 Creat Clearance w eGFR > 60 Random Glucose 79 Calcium 9.1 Total Bilirubin 0.2 AST 24 ALT 21 Alkaline Phosphatase 107 Total Protein 8.5 H Albumin 3.4 Urine Color Ltyellow Urine Appearance Clear Urine pH 5.0 Ur Specific [place] 1.011 Urine Protein Negative Urine Glucose (UA) Negative Urine Ketones Negative Urine Blood Negative Urine Nitrite Negative Urine Bilirubin Negative Urine Urobilinogen Negative Ur Leukocyte Esterase Negative RPR Titer 07/21/18 05:45 WBC RBC Hgb Hct MCV MCH MCHC RDW Plt Count MPV Sodium Potassium Chloride Carbon Dioxide Anion Gap BUN Creatinine Creat Clearance w eGFR Random Glucose Calcium Total Bilirubin AST ALT Alkaline Phosphatase Total Protein Albumin Urine Color Urine Appearance Urine pH Ur Specific [place] Urine Protein Urine Glucose (UA) Urine Ketones Urine Blood Urine Nitrite Urine Bilirubin Urine Urobilinogen Ur Leukocyte Esterase RPR Titer Nonreactive LABS NOTED. - Treatment Hospital Course: Detox Protocol Followed, Detoxed Safely, Responded well, Discharged Condition Good Patient has Accepted a Rehab Referral to: [facility], ELECTING TO PURSUE REHAB ADMISSION ON HIS OWN AT A LATER DATE. - Medication Discharge Medications: Ambulatory Orders Amlodipine Besylate 5 mg PO DAILY 09/01/17 Aspirin [Aspirin EC] 81 mg PO DAILY 09/01/17 Atenolol [Tenormin -] 25 mg PO DAILY 09/01/17 Elviteg/Cob/Emtri/Tenof Alafen [Genvoya (Non-Formulary)] 150 mg PO DAILY Fluoxetine HCl 20 mg PO DAILY 09/01/17 Sulfamethoxazole/Trimethoprim [Sulfamethoxazole-Tmp Ds Tablet] 1 tab PO DAILY Quetiapine Fumarate [Seroquel] 100 mg PO HS 11/23/17 - Diagnosis (1) Alcohol dependence with uncomplicated withdrawal Status: Acute (2) Cannabis dependence Status: Acute (3) Cocaine dependence, uncomplicated Status: Acute (4) Insomnia Status: Acute Qualifiers: Insomnia type: unspecified Qualified Code(s): G47.00 - Insomnia, unspecified (5) Methamphetamine dependence Status: Acute (6) Substance induced mood disorder Status: Acute (7) Substance-induced sleep disorder Status: Acute (8) Weight loss Status: Acute (9) Anemia Status: Chronic Qualifiers: Anemia type: unspecified type Qualified Code(s): D64.9 - Anemia, unspecified (10) HIV (human immunodeficiency virus infection) Status: Chronic Qualifiers: HIV symptom status: unspecified Qualified Code(s): B20 - Human immunodeficiency virus [HIV] disease (11) Hypertension Status: Chronic Qualifiers: Hypertension type: essential hypertension Qualified Code(s): I10 - Essential (primary) hypertension (12) MDD (major depressive disorder), recurrent episode, moderate Status: Chronic (13) Nicotine dependence Status: Chronic Qualifiers: Nicotine product type: cigarettes Substance use status: in withdrawal Qualified Code(s): F17.213 - Nicotine dependence, cigarettes, with withdrawal (14) Noncompliance with medication regimen Status: Chronic (15) PTSD (post-traumatic stress disorder) Status: Chronic - AMA Did Patient Leave Against Medical Advice: No
[2018-07-23] MEDS ORDERED: chlordiazePOXIDE HCL 10 MG CAPSULE PO SCH (23:00)
== END 2018-07-23 10:20 | disposition home or self-care (01) | DRG 774 ==
LOC: YASAS 12:37 → Y3N 18:41
PROVIDERS: ADMIT Surgery; ATTEND Surgery
PROC: HZ2ZZZZ Detoxification Services for Substance Abuse Treatment (ICD-10-PCS; principal; 2018-07-20)
DX: F10.230 Alcohol dependence with withdrawal, uncomplicated (principal); F14.20 Cocaine dependence, uncomplicated; F15.20 Other stimulant dependence, uncomplicated; F12.20 Cannabis dependence, uncomplicated; F17.210 Nicotine dependence, cigarettes, uncomplicated; F19.24 Other psychoactive substance dependence with psychoactive substance-induced mood disorder; F19.282 Other psychoactive substance dependence with psychoactive substance-induced sleep disorder; F33.9 Major depressive disorder, recurrent, unspecified; F43.10 Post-traumatic stress disorder, unspecified; F41.8 Other specified anxiety disorders; F32.9 Major depressive disorder, single episode, unspecified; G47.00 Insomnia, unspecified; I10 Essential (primary) hypertension; R63.4 Abnormal weight loss; Z68.20 Body mass index [BMI] 20.0-20.9, adult; Z86.2 Personal history of diseases of the blood and blood-forming organs and certain disorders involving the immune mechanism; Z91.14 Patient's other noncompliance with medication regimen; Z91.5 Personal history of self-harm
CPT/HCPCS: 36415; 80053; 81003; 85027; 86593; J0735

== ENCOUNTER 2018-10-29 13:53 | Inpatient (IN) | payer OTHER ==
[2018-10-29 14:47] VITALS: BMI 19.8
--- NOTE | 2018-10-29 16:41 | HP ---
"CIWA Score Nausea/Vomitin-No Nausea/No Vomiting Muscle Tremors: 4-Moderate,w/Arms Extend Anxiety: 3 Agitation: 4-Moderately Restless Paroxysmal Sweats: 1-Minimal Palms Moist Orientation: 0-Oriented Tacttile Disturbances: 0-None Auditory Disturbances: 0-None Visual Disturbances: 0-None Headache: 0-None Present CIWA-Ar Total Score: 12 - Admission Criteria [facility] Guidelines: Admission for Medically Managed Detox: Requires at least one of the followin. CIWA greater than 12 2. Seizures within the past 24 hours 3. Delirium tremens within the past 24 hours 4. Hallucinations within the past 24 hours 5. Acute intervention needed for co occurring medical disorder 6. Acute intervention needed for co occurring psychiatric disorder 7. Severe withdrawal that cannot be handled at a lower level of care (continued vomiting, continued diarrhea, abnormal vital signs) requiring intravenous medication and/or fluids 8. Patient presents the following: CIWA greater than 12 Admission Criteria Met: Admission criteria met Admission ROS [facility] Chief Complaint: Here for rehab. Allergies/Adverse Reactions: Allergies Allergy/AdvReac Type Severity Reaction Status Date / Time No Known Allergies Allergy Verified 10/29/18 14:31 History of Present Illness: Patient referred here today, from [facility], for rehab from multiple [facility]. Patient in [facility] ED from 10/27-. Patient states was sneaking drinks in the ED department to help w/ withdrawal symptoms from crystal meth. Patient states had a nip drink prior to registering here at [facility] ( approx 50 ml) Assessment indicates a CIWA of 12 and based on patient admitting continued alcohol use, will admit to detox, to allay any acute, severe alcohol withdrawal complications. Crystal meth use began at age 50. Cocaine use began at age 20. Alcohol use began at age 24. Usual intake about 1/5th. States last drink today. Marijuana use began at age 15. Last blackout 2 years ago. Denies methadone or any other opiates. Denies hx seizures or overdoses. PMHx: HIV (+); MHHx: Depression; PTSD; States last use of Trazodone was about 8 days ago. No recent visit to Provider. Denies thoughts of harming self or others. Patient Name: Donte Verduzco Date: 1965 [address]: [address] [place] [address] [place] [address] Sex: Male Rx Written Rx Dispensed Drug Quantity Days Supply Prescriber Name 03/02/2018 03/02/2018 tramadol hcl 50 mg tablet 14 7 Genny Allyssa VALERO Search Terms: Donte Verduzco, 1965 Search Date: 10/29/2018 04:35:43 PM States Searched: [place], [place], [place], [place], [place], [place] The Drug Utilization Report below displays the controlled substance prescriptions, if any, that were dispensed in the indicated state(s). The information displayed on this report is compiled from requests submitted to other states' PMPs, and accurately reflects the information as returned by them. Blank amezcua indicate data not provided by other state. This report was requested by: Adelina Jurado | Reference #: [id number] Exam Limitations: No Limitations - Ebola screening Have you traveled outside of the country in the last 21 days: No (N) Have you had contact with anyone from an Ebola affected area: No Have you been sick,other than usual withdrawal symptoms: No (Denies recent measles exposure) Do you have a fever: No - Review of Systems Constitutional: Changes in sleep (Difficulty sleeping when using.) EENT: reports: Blurred Vision, Dental Problems (Missing teeth/cavities. Chews and swallows ok) Respiratory: reports: No Symptoms reported Cardiac: reports: No Symptoms Reported GI: reports: No Symptoms Reported : reports: No Symptoms Reported Musculoskeletal: reports: No Symptoms Reported Integumentary: reports: Rash (On back and itches- states probably r/t HIV) Neuro: reports: Tremors Endocrine: reports: No Symptoms Reported Hematology: reports: Other (HIV (+). Not on medications. Last saw Provider 3-4 months ago) Psychiatric: reports: Judgement Intact, Orientated x3, Agitated, Anxious, Depressed ( Denies thoughts of harming self or others.) Patient History - Patient Medical History Hx Anemia: No Hx Asthma: No Hx Chronic Obstructive Pulmonary Disease (COPD): No Hx Cancer: No Hx Cardiac Disorders: No Hx Congestive Heart Failure: No Hx Hypertension: No Hx Hypercholesterolemia: No Hx Pacemaker: No HX Cerebrovascular Accident: No Hx Seizures: No Hx Dementia: No Hx Diabetes: No Hx Gastrointestinal Disorders: No Hx Liver Disease: No Hx Genitourinary Disorders: No Hx Sexually Transmitted Disorders: No Hx Renal Disease (ESRD): No Hx Thyroid Disease: No Hx Human Immunodeficiency Virus (HIV): Yes (DX 1998 RX GENVOYA NON COMPLAINT FOR OVER A YEAR) Hx Hepatitis C: No Hx Depression: Yes Hx Suicide Attempt: Yes (OVERDOSED ON PILLS IN 2007) Hx Bipolar Disorder: No Hx Schizophrenia: No - Patient Surgical History Past Surgical History: Yes Hx Neurologic Surgery: No Hx Cataract Extraction: No Hx Cardiac Surgery: No Hx Lung Surgery: No Hx Breast Surgery: No Hx Breast Biopsy: No Hx Abdominal Surgery: No Hx Appendectomy: No Hx Cholecystectomy: No Hx Genitourinary Surgery: No Hx Section: No Hx Orthopedic Surgery: No Hx Hysterectomy: No Other Surgical History: TONSILLECTOMY A CHILD Anesthesia Reaction: No - PPD History Previous Implant?: Yes Documented Results: Negative w/proof Implanted On Prior R Admission?: Yes Date: 09/03/17 PPD to be Administered?: Yes - Smoking Cessation Smoking history: Current every day smoker Have you smoked in the past 12 months: Yes Aproximately how many cigarettes per day: 20 Cigars Per Day: 0 Hx Chewing Tobacco Use: No Initiated information on smoking cessation: Yes 'Breaking Loose' booklet given: 10/29/18 - Substance & Tx. History Hx Alcohol Use: Yes Hx Substance Use: Yes Substance Use Type: Alcohol, Cocaine, Marijuana Hx Substance Use Treatment: Yes (detox, rehab) - Substances abused Crystal meth Substance route: Injection Frequency: Daily Amount used: $300-400 Age of first use: 50 Date of last use: 10/27/18 Cocaine Substance route: Smoking Frequency: 1-3 times last 30 days Amount used: $40-50 Age of first use: 20 Date of last use: 10/26/18 Alcohol Substance route: Oral Frequency: Daily Amount used: 1/5 , 6 pack Age of first use: 24 Date of last use: 10/29/18 Marijuana/Hashish Substance route: Smoking Frequency: Daily Amount used: $10-20 Age of first use: 15 Date of last use: 10/27/18 Family Disease History - Family Disease History Family Disease History: Diabetes: Mother, Other: Father (DRUG AND ALCOHOL) Admission Physical Exam [facility] - Vital Signs Vital Signs: Vital Signs - 24 hr 10/29/18 10/29/18 14:36 15:20 Temperature 98.2 F 98.2 F Pulse Rate 84 84 Respiratory 18 18 Rate Blood Pressure 120/85 120/85 - Physical General Appearance: Yes: Mild Distress, Tremorous, Anxious HEENTM: Yes: EOMI, Hearing grossly Normal, Normocephalic, Normal Voice, DIANA, Pharynx Normal Respiratory: Yes: Lungs Clear, Normal Breath Sounds, No Respiratory Distress Neck: Yes: No masses,lesions,Nodules, Supple Breast: Yes: Breast Exam Deferred Cardiology: Yes: Regular Rhythm, S1, S2 Abdominal: Yes: Flat, Soft, Increased Bowel Sounds, Tenderness ((L) upper quad upon deep palpation. No guarding, no rebound tenmderness. Abd soft) Genitourinary: Yes: Within Normal Limits Back: Yes: Normal Inspection Musculoskeletal: Yes: full range of Motion, Gait Steady Extremities: Yes: Normal Capillary Refill, Tremors Neurological: Yes: school admissions representative II-XII NML intact, Fully Oriented, Alert, Motor Strength 5/5 Integumentary: Yes: Normal Color, Warm, Rash (Scattered scratched papular rashes on face, back and chest area.) Lymphatic: Yes: Within Normal Limits - Diagnostic (1) Alcohol dependence with uncomplicated withdrawal Current Visit: Yes Status: Acute (2) Cannabis dependence Current Visit: Yes Status: Chronic (3) Cocaine dependence, uncomplicated Current Visit: Yes Status: Chronic (4) Methamphetamine dependence Current Visit: Yes Status: Chronic (5) Weight loss Current Visit: Yes Status: Chronic (6) HIV (human immunodeficiency virus infection) Current Visit: Yes Status: Chronic Qualifiers: HIV symptom status: unspecified Qualified Code(s): B20 - Human immunodeficiency virus [HIV] disease Comment: Not on HIV medications (7) Hypertension Current Visit: No Status: Chronic Qualifiers: Hypertension type: unspecified Qualified Code(s): I10 - Essential (primary ) hypertension Comment: Not on HTN medications (8) Nicotine dependence Current Visit: Yes Status: Chronic Qualifiers: Nicotine product type: cigarettes Substance use status: in withdrawal Qualified Code(s): F17.213 - Nicotine dependence, cigarettes, with withdrawal (9) Rash and nonspecific skin eruption Current Visit: Yes Status: Chronic Comment: States rash r/t HIV infection (10) Abnormal EKG Current Visit: Yes Status: Acute Comment: 10/29/18: T-wave abnormality noted. Hx cocaine and meth use disorder Cleared for Admission S - Detox or Rehab [facility] Level of Care: Medically Managed Detox Regimen/Protocol: Librium Claeared for Rehab Admission: No Breathalyzer - Breathalyzer Breathalyzer: 0 Urine Drug Screen - Test Device Lot number: [id number] Expiration date: 07/29/20 - Control Is test valid?: Yes - Results Drug screen NEGATIVE: No Urine drug screen results: THC-Marijuana, MET-Methamphetamine, AMP-Amphetamines , MTD-Methadone Inpatient Rehab Admission - Rehab Decision to Admit Inpatient rehab admission?: No"
[2018-10-29] MEDS ORDERED: NICOTINE POLACRILEX 2 MG GUM BUC PRN (17:28)
[2018-10-29] MEDS ORDERED: MAG HYDROX/AL HYDROX/SIMETH 30 ML UNIT-DOSE CUP PO PRN (17:28)
[2018-10-29] MEDS ORDERED: MAGNESIUM HYDROX 2400MG/30ML ORAL SUSPENSION 30 ML CUP PO PRN (17:28)
[2018-10-29] MEDS ORDERED: IBUPROFEN 400 MG TABLET (FP) PO PRN (17:28)
[2018-10-29] MEDS ORDERED: ACETAMINOPHEN 325 MG TABLET (FP) PO PRN ×2 (17:28)
[2018-10-29] MEDS ORDERED: chlordiazePOXIDE HCL 10 MG CAPSULE PO PRN (17:28)
[2018-10-29] MEDS ORDERED: METHOCARBAMOL 500 MG TABLET PO PRN (17:28)
[2018-10-29] MEDS ORDERED: MELATONIN 5 MG TABLETS PO PRN (17:28)
[2018-10-29] MEDS ORDERED: MAGNESIUM CITRATE 300 ML BOTTLE PO PRN (17:28)
[2018-10-29] MEDS ORDERED: BISMUTH SUBSALICYLATE 524 MG/30 ML UD PO PRN (17:28)
[2018-10-29] MEDS ORDERED: MENTHOL/PHENOL 1 EACH UD MM PRN (17:28)
[2018-10-29] MEDS: THIAMINE HCL 100 MG TABLET (FP) PO SCH (22:04)
[2018-10-29] MEDS: BACITRACIN 15 GM TUBE TOPICAL OINTMENT TP SCH (22:05)
[2018-10-29] MEDS: chlordiazePOXIDE HCL 25 MG CAPSULE PO SCH (22:05)
[2018-10-29] MEDS ORDERED: traZODone HCL 100 MG TABLET (FP) PO ONE (23:00)
[2018-10-30] MEDS: chlordiazePOXIDE HCL 25 MG CAPSULE PO SCH ×2 (05:44→12:09)
[2018-10-30] MEDS: NICOTINE 21 MG/24 HOURS TOPICAL PATCH TD SCH (09:34)
[2018-10-30] MEDS: PRENATAL VITAMINS W/ FOLIC ACID TABLET (FP) PO SCH (09:34)
[2018-10-30] MEDS: BACITRACIN 15 GM TUBE TOPICAL OINTMENT TP SCH ×2 (09:35→22:44)
[2018-10-30 12:38] LABS: HEMATOCRIT 34.9 % (35.4-49); HEMOGLOBIN 11.7 GM/dL (11.7-16.9); MCH 29.4 pg (25.7-33.7); MCHC 33.6 g/dl (32.0-35.9); MEAN CELL VOLUME 87.4 fl (80-96); PLATELET COUNT 205 K/MM3 (134-434); RBC 3.99 M/mm3 (4.00-5.60); RDW 13.9 % (11.9-15.9); WHITE BLOOD COUNT 2.1 K/mm3 (4.0-10.0)
[2018-10-30 12:54] LABS: ALBUMIN 2.9 g/dl (3.4-5.0); BILIRUBIN,TOTAL 0.2 mg/dL (0.2-1); CALCIUM 8.7 mg/dL (8.5-10.1); TOT PROT 7.5 g/dl (6.4-8.2)
--- NOTE | 2018-10-30 15:42 | CONSULT ---
[facility] Psychiatric Consult - Data Date of interview: 10/30/18 Admission source: [facility] Identifying data: Patient approched for psychiatric consultation at 10:00am and 3:30pm. Patient refused both times stating he was too tired to talk.
--- NOTE | 2018-10-30 16:09 | PN ---
[facility] CIWA - CIWA Score Nausea/Vomitin-No Nausea/No Vomiting Muscle Tremors: None Anxiety: 4-Mod. Anxious/Guarded Agitation: 3 Paroxysmal Sweats: 3 Orientation: 0-Oriented Tacttile Disturbances: 2-Mild Itch/Numbness/Burn Auditory Disturbances: 0-None Visual Disturbances: 1-Very Mild Sensitivity Headache: 0-None Present CIWA-Ar Total Score: 13 S Progress Note (SOAP) Subjective: Anxious, Sweating, Fatigue. Objective: PATIENT A & O X 3, OBSERVED AMBULATING ON UNIT UNASSISTED. IN NO ACUTE DISTRESS. 10/30/18 16:11 Vital Signs Temperature 97.5 F L 10/30/18 13:35 Pulse Rate 87 10/30/18 13:35 Respiratory Rate 15 10/30/18 13:35 Blood Pressure 122/93 10/30/18 13:35 O2 Sat by Pulse Oximetry (%) Laboratory Last Values WBC 2.1 K/mm3 (4.0-10.0) L 10/30/18 09:20 RBC 3.99 M/mm3 (4.00-5.60) L 10/30/18 09:20 Hgb 11.7 GM/dL (11.7-16.9) 10/30/18 09:20 Hct 34.9 % (35.4-49) L 10/30/18 09:20 MCV 87.4 fl (80-96) 10/30/18 09:20 MCH 29.4 pg (25.7-33.7) 10/30/18 09:20 MCHC 33.6 g/dl (32.0-35.9) 10/30/18 09:20 RDW 13.9 % (11.9-15.9) 10/30/18 09:20 Plt Count 205 K/MM3 (134-434) 10/30/18 09:20 MPV 8.0 fl (7.5-11.1) 10/30/18 09:20 Sodium 140 mmol/L (136-145) 10/30/18 09:20 Potassium 4.0 mmol/L (3.5-5.1) 10/30/18 09:20 Chloride 106 mmol/L (98-107) 10/30/18 09:20 Carbon Dioxide 28 mmol/L (21-32) 10/30/18 09:20 Anion Gap 6 MMOL/L (8-16) L 10/30/18 09:20 BUN 8 mg/dL (7-18) 10/30/18 09:20 Creatinine 1.0 mg/dL (0.55-1.3) 10/30/18 09:20 Est GFR (CKD-EPI)AfAm 100.55 10/30/18 09:20 Est GFR (CKD-EPI)NonAf 86.76 10/30/18 09:20 Random Glucose 115 mg/dL (74-106) H 10/30/18 09:20 Calcium 8.7 mg/dL (8.5-10.1) 10/30/18 09:20 Total Bilirubin 0.2 mg/dL (0.2-1) 10/30/18 09:20 AST 15 U/L (15-37) 10/30/18 09:20 ALT 14 U/L (13-61) 10/30/18 09:20 Alkaline Phosphatase 87 U/L (45-117) 10/30/18 09:20 Total Protein 7.5 g/dl (6.4-8.2) 10/30/18 09:20 Albumin 2.9 g/dl (3.4-5.0) L 10/30/18 09:20 LABS NOTED. PATIENT HAS HAD LOW WBC LEVELS ON PREVIOUS ADMISSIONS. RPR RESULT PENDING. 10/30/18 16:12 Assessment: 10/30/18 16:12 WITHDRAWAL SYMPTOMS. LEUKOPENIA. Plan: CONTINUE DETOX. INCREASE DAILY PO FLUID / WATER INTAKE.
[2018-10-30] MEDS: chlordiazePOXIDE 5 MG CAPSULE PO SCH (22:44)
[2018-10-30] MEDS: THIAMINE HCL 100 MG TABLET (FP) PO SCH (22:44)
[2018-10-31] MEDS: chlordiazePOXIDE 5 MG CAPSULE PO SCH ×2 (06:04→13:48)
[2018-10-31] MEDS: PRENATAL VITAMINS W/ FOLIC ACID TABLET (FP) PO SCH (09:41)
[2018-10-31] MEDS: NICOTINE 21 MG/24 HOURS TOPICAL PATCH TD SCH (09:42)
[2018-10-31] MEDS: BACITRACIN 15 GM TUBE TOPICAL OINTMENT TP SCH ×2 (09:42→22:28)
[2018-10-31 12:35] LABS: RPR REACTIVE 1:1 (NONREACTIVE)
--- NOTE | 2018-10-31 14:16 | PN ---
[facility] CIWA - CIWA Score Nausea/Vomitin-Mild Nausea/No Vomiting Muscle Tremors: 3 Anxiety: 2 Agitation: 3 Paroxysmal Sweats: 3 Orientation: 0-Oriented Tacttile Disturbances: 0-None Auditory Disturbances: 0-None Visual Disturbances: 0-None Headache: 0-None Present CIWA-Ar Total Score: 12 S Progress Note (SOAP) Subjective: Sweats Objective: 10/31/18 14:10 A & O x 3 agitated, angry Vital Signs Temperature 98.4 F 10/31/18 09:40 Pulse Rate 89 10/31/18 09:40 Respiratory Rate 18 10/31/18 09:40 Blood Pressure 136/96 10/31/18 09:40 O2 Sat by Pulse Oximetry (%) Laboratory Last Values WBC 2.1 K/mm3 (4.0-10.0) L 10/30/18 09:20 RBC 3.99 M/mm3 (4.00-5.60) L 10/30/18 09:20 Hgb 11.7 GM/dL (11.7-16.9) 10/30/18 09:20 Hct 34.9 % (35.4-49) L 10/30/18 09:20 MCV 87.4 fl (80-96) 10/30/18 09:20 MCH 29.4 pg (25.7-33.7) 10/30/18 09:20 MCHC 33.6 g/dl (32.0-35.9) 10/30/18 09:20 RDW 13.9 % (11.9-15.9) 10/30/18 09:20 Plt Count 205 K/MM3 (134-434) 10/30/18 09:20 MPV 8.0 fl (7.5-11.1) 10/30/18 09:20 Sodium 140 mmol/L (136-145) 10/30/18 09:20 Potassium 4.0 mmol/L (3.5-5.1) 10/30/18 09:20 Chloride 106 mmol/L (98-107) 10/30/18 09:20 Carbon Dioxide 28 mmol/L (21-32) 10/30/18 09:20 Anion Gap 6 MMOL/L (8-16) L 10/30/18 09:20 BUN 8 mg/dL (7-18) 10/30/18 09:20 Creatinine 1.0 mg/dL (0.55-1.3) 10/30/18 09:20 Est GFR (CKD-EPI)AfAm 100.55 10/30/18 09:20 Est GFR (CKD-EPI)NonAf 86.76 10/30/18 09:20 Random Glucose 115 mg/dL (74-106) H 10/30/18 09:20 Calcium 8.7 mg/dL (8.5-10.1) 10/30/18 09:20 Total Bilirubin 0.2 mg/dL (0.2-1) 10/30/18 09:20 AST 15 U/L (15-37) 10/30/18 09:20 ALT 14 U/L (13-61) 10/30/18 09:20 Alkaline Phosphatase 87 U/L (45-117) 10/30/18 09:20 Total Protein 7.5 g/dl (6.4-8.2) 10/30/18 09:20 Albumin 2.9 g/dl (3.4-5.0) L 10/30/18 09:20 RPR Titer Reactive 1:1 (NONREACTIVE) H D 10/30/18 09:20 Noted RPR result, antibody result pending Pt hostile to assessment, did not want to answer if he had Syphillis in the past or not Assessment: 10/31/18 14:19 withdrawal sx Plan: continue detox Follow up on Antibody result
--- NOTE | 2018-10-31 15:41 | EKG ---
Test Reason : Blood Pressure : / mmHG Vent. Rate : 068 BPM Atrial Rate : 068 BPM P-R Int : 166 ms QRS Dur : 104 ms QT Int : 428 ms P-R-T Axes : 062 068 071 degrees QTc Int : 455 ms NORMAL SINUS RHYTHM T WAVE ABNORMALITY, CONSIDER ANTERIOR ISCHEMIA ABNORMAL ECG WHEN COMPARED WITH ECG OF 22-NOV-2017 20:42, NO SIGNIFICANT CHANGE WAS FOUND Confirmed by ROE MONTELONGO MD ([id number]) on 10/31/2018 3:41:08 PM Referred By: Confirmed By:ROE MONTELONGO MD
[2018-10-31 16:25] LABS: TREPONEMA ANTIBODY REACTIVE (NONREACTIVE)
--- NOTE | 2018-10-31 17:54 | PN ---
S Progress Note Note: Abnormal Lab Results 10/30/18 09:20 RPR Titer Reactive 1:1 H D pt reports tx in [place] 3 years ago 11/23/17 RPR negative 07/21/18 RPR negative . pt denies any symptoms/ rash . agreeable to tx .
[2018-10-31] MEDS ORDERED: chlordiazePOXIDE HCL 10 MG CAPSULE PO PRN (21:00)
[2018-10-31] MEDS: chlordiazePOXIDE HCL 10 MG CAPSULE PO SCH (22:28)
[2018-10-31] MEDS: THIAMINE HCL 100 MG TABLET (FP) PO SCH (22:28)
[2018-11-01] MEDS: chlordiazePOXIDE HCL 10 MG CAPSULE PO SCH ×3 (06:19→22:00)
[2018-11-01] MEDS ORDERED: PENICILLIN G BENZATHINE 2,400,000 UNIT/4 ML PFS IM ONE (10:00)
[2018-11-01] MEDS: PRENATAL VITAMINS W/ FOLIC ACID TABLET (FP) PO SCH (10:11)
[2018-11-01] MEDS: NICOTINE 21 MG/24 HOURS TOPICAL PATCH TD SCH (10:12)
[2018-11-01] MEDS: BACITRACIN 15 GM TUBE TOPICAL OINTMENT TP SCH ×2 (10:12→22:55)
--- NOTE | 2018-11-01 11:52 | PN ---
S CIWA - CIWA Score Nausea/Vomitin-Mild Nausea/No Vomiting Muscle Tremors: 2 Anxiety: 1-Mildly Anxious Agitation: 1-Slight > Activity Paroxysmal Sweats: No Perspiration Orientation: 0-Oriented Tacttile Disturbances: 0-None Auditory Disturbances: 0-None Visual Disturbances: 0-None Headache: 0-None Present CIWA-Ar Total Score: 5 [facility] Progress Note (SOAP) Subjective: stated that he is allergic to penicillin "since childhood" "I do not want shoot" patient agrees syphilis treatment by oral medication doxycyline 100 mg po bid x 14 days HIV positive not in treatment x 3 months patient agrees to return to infectious disease specialist for ART Objective: 11/01/18 13:23 Vital Signs Temperature 98.4 F 11/01/18 09:09 Pulse Rate 84 11/01/18 09:09 Respiratory Rate 20 11/01/18 09:09 Blood Pressure 140/95 11/01/18 09:09 O2 Sat by Pulse Oximetry (%) Laboratory Last Values WBC 2.1 K/mm3 (4.0-10.0) L 10/30/18 09:20 RBC 3.99 M/mm3 (4.00-5.60) L 10/30/18 09:20 Hgb 11.7 GM/dL (11.7-16.9) 10/30/18 09:20 Hct 34.9 % (35.4-49) L 10/30/18 09:20 MCV 87.4 fl (80-96) 10/30/18 09:20 MCH 29.4 pg (25.7-33.7) 10/30/18 09:20 MCHC 33.6 g/dl (32.0-35.9) 10/30/18 09:20 RDW 13.9 % (11.9-15.9) 10/30/18 09:20 Plt Count 205 K/MM3 (134-434) 10/30/18 09:20 MPV 8.0 fl (7.5-11.1) 10/30/18 09:20 Sodium 140 mmol/L (136-145) 10/30/18 09:20 Potassium 4.0 mmol/L (3.5-5.1) 10/30/18 09:20 Chloride 106 mmol/L (98-107) 10/30/18 09:20 Carbon Dioxide 28 mmol/L (21-32) 10/30/18 09:20 Anion Gap 6 MMOL/L (8-16) L 10/30/18 09:20 BUN 8 mg/dL (7-18) 10/30/18 09:20 Creatinine 1.0 mg/dL (0.55-1.3) 10/30/18 09:20 Est GFR (CKD-EPI)AfAm 100.55 10/30/18 09:20 Est GFR (CKD-EPI)NonAf 86.76 10/30/18 09:20 Random Glucose 115 mg/dL (74-106) H 10/30/18 09:20 Calcium 8.7 mg/dL (8.5-10.1) 10/30/18 09:20 Total Bilirubin 0.2 mg/dL (0.2-1) 10/30/18 09:20 AST 15 U/L (15-37) 10/30/18 09:20 ALT 14 U/L (13-61) 10/30/18 09:20 Alkaline Phosphatase 87 U/L (45-117) 10/30/18 09:20 Total Protein 7.5 g/dl (6.4-8.2) 10/30/18 09:20 Albumin 2.9 g/dl (3.4-5.0) L 10/30/18 09:20 RPR Titer Reactive 1:1 (NONREACTIVE) H D 10/30/18 09:20 T.pallidum Ab (MHA) Reactive (NONREACTIVE) 10/30/18 09:20 lab noted reactive rpr treated with doxycycline Assessment: 11/01/18 13:24 withdrawal sx Plan: continue detox
[2018-11-01] MEDS: DOXYCYCLINE HYCLATE 100 MG TABLET PO SCH (17:16)
[2018-11-01] MEDS: THIAMINE HCL 100 MG TABLET (FP) PO SCH (22:55)
[2018-11-02 10:04] VITALS: BP 119/91; PULSE 90; TEMP 98.2
[2018-11-02] MEDS: BACITRACIN 15 GM TUBE TOPICAL OINTMENT TP SCH (10:25)
[2018-11-02] MEDS: DOXYCYCLINE HYCLATE 100 MG TABLET PO SCH (10:26)
[2018-11-02] MEDS: NICOTINE 21 MG/24 HOURS TOPICAL PATCH TD SCH (10:26)
[2018-11-02] MEDS: PRENATAL VITAMINS W/ FOLIC ACID TABLET (FP) PO SCH (10:26)
--- NOTE | 2018-11-02 11:55 | DS ---
[facility] Detox Discharge Summary Admission Date: 10/29/18 Discharge Date: 11/02/18 - History Present History: Alcohol Dependence, Cannabis Dependence, Cocaine Dependence Additional Comments: PATIENT GOING TO [facility] ([facility]) FOR AFTERCARE. TREATMENT (DOXYCYCLINE PO) FOR REACTIVE RPR STARTED WHILE PATIENT WAS ADMITTED FOR DETOX TO BE CONTINUED WHILE PATIENT IS ADMITTED FOR REHAB. PATIENT ADVISED TO FOLLOW-UP WITH PSYCHIATRIC AIDE . INFECTIOUS DISEASE SPECIALIST AFTER DISCHARGE FROM DETOX FOR GENERAL MEDICAL ASSESSMENT AND FOR REACTIVE RPR RESULT AND FOR NOTED ON ADMISSION LABORATORY ASSESSMENT WHILE PATIENT WAS ADMITTED FOR DETOX. PATIENT VERBALIZED UNDERSTANDING OF ALL RECOMMENDATIONS PRESENTED TO HIM PRIOR TO DISCHARGE FROM DETOX UNIT. PATIENT WAS DISCHARGED FROM DETOX UNIT TO BE TAKEN OVER TO REHAB UNIT IN STABLE MEDICAL CONDITION. Pertinent Past History: HIV, Depression, Leukopenia (While Admitted for Detox), Reactive RPR (Treatment Started While Admitted for Detox), History Of Weight Loss, Nicotine Dependence, HTN, Rash / Non-Specific Skin Eruption, History of Abnormal Skin Eruption, P.T.S.D., Methamphetamine Dependence. - Physical Exam Results Vital Signs: Vital Signs Temperature 98.2 F 11/02/18 10:03 Pulse Rate 90 11/02/18 10:03 Respiratory Rate 16 11/02/18 10:03 Blood Pressure 119/91 11/02/18 10:03 O2 Sat by Pulse Oximetry (%) Pertinent Admission Physical Exam Findings: WITHDRAWAL SYMPTOMS. Laboratory Tests 10/30/18 10/30/18 10/30/18 09:20 09:20 09:20 WBC 2.1 L RBC 3.99 L Hgb 11.7 Hct 34.9 L MCV 87.4 MCH 29.4 MCHC 33.6 RDW 13.9 Plt Count 205 MPV 8.0 Sodium 140 Potassium 4.0 Chloride 106 Carbon Dioxide 28 Anion Gap 6 L BUN 8 Creatinine 1.0 Est GFR (CKD-EPI)AfAm 100.55 Est GFR (CKD-EPI)NonAf 86.76 Random Glucose 115 H Calcium 8.7 Total Bilirubin 0.2 AST 15 ALT 14 Alkaline Phosphatase 87 Total Protein 7.5 Albumin 2.9 L RPR Titer Reactive 1:1 H D T.pallidum Ab (MHA) Reactive LABS NOTED. - Treatment Hospital Course: Detox Protocol Followed, Detoxed Safely, Responded well, Discharged Condition Good, Rehab Referral Accepted Patient has Accepted a Rehab Referral to: [facility] ([place], [place]). - Medication Discharge Medications: Ambulatory Orders Trazodone HCl 200 mg PO HS 10/29/18 Doxycycline Hyclate 100 mg PO BID 14 Days #28 tablet 11/02/18 - Diagnosis (1) Abnormal EKG Status: Acute (2) Alcohol dependence with uncomplicated withdrawal Status: Acute (3) Leukopenia Status: Acute Qualifiers: Leukopenia type: unspecified Qualified Code(s): D72.819 - Decreased white blood cell count, unspecified (4) Cannabis dependence Status: Chronic (5) Cocaine dependence, uncomplicated Status: Chronic (6) HIV (human immunodeficiency virus infection) Status: Chronic Qualifiers: HIV symptom status: unspecified Qualified Code(s): B20 - Human immunodeficiency virus [HIV] disease (7) Methamphetamine dependence Status: Chronic (8) Nicotine dependence Status: Chronic Qualifiers: Nicotine product type: cigarettes Substance use status: in withdrawal Qualified Code(s): F17.213 - Nicotine dependence, cigarettes, with withdrawal (9) Rash and nonspecific skin eruption Status: Chronic (10) Weight loss Status: Chronic (11) Positive RPR test Status: Acute - AMA Did Patient Leave Against Medical Advice: No
== END 2018-11-02 11:45 | disposition other institution (70) | DRG 774 ==
LOC: YASAS 13:53 → Y3N 17:44
PROVIDERS: ADMIT Surgery; ATTEND Surgery
PROC: HZ2ZZZZ Detoxification Services for Substance Abuse Treatment (ICD-10-PCS; principal; 2018-10-29)
DX: F10.230 Alcohol dependence with withdrawal, uncomplicated (principal); F14.20 Cocaine dependence, uncomplicated; F15.20 Other stimulant dependence, uncomplicated; F12.20 Cannabis dependence, uncomplicated; F17.210 Nicotine dependence, cigarettes, uncomplicated; Z21 Asymptomatic human immunodeficiency virus [HIV] infection status; A53.0 Latent syphilis, unspecified as early or late; D72.819 Decreased white blood cell count, unspecified; I10 Essential (primary) hypertension; R94.31 Abnormal electrocardiogram [ECG] [EKG]; R63.4 Abnormal weight loss; Z68.1 Body mass index [BMI] 19.9 or less, adult; Z91.5 Personal history of self-harm
CPT/HCPCS: 36415; 80053; 85027; 86593; 86780; 93005; 93010

== ENCOUNTER 2018-11-02 11:45 | Inpatient (IN) | payer OTHER ==
[2018-11-02] MEDS ORDERED: LOPERAMIDE HCL 2 MG CAPSULE PO PRN (12:02)
[2018-11-02] MEDS ORDERED: IBUPROFEN 400 MG TABLET (FP) PO PRN (12:02)
[2018-11-02] MEDS ORDERED: guaiFENesin 200 MG/10 ML 10 ML UNIT-DOSE CUPS PO PRN (12:02)
[2018-11-02] MEDS ORDERED: MENTHOL/PHENOL 1 EACH UD MM PRN (12:02)
[2018-11-02] MEDS ORDERED: NICOTINE POLACRILEX 2 MG GUM BUC PRN (12:02)
[2018-11-02] MEDS ORDERED: P-EPHED 60MG/TRIPROLIDI 2.5MG TABLET PO PRN (12:02)
[2018-11-02] MEDS ORDERED: MAGNESIUM CITRATE 300 ML BOTTLE PO PRN (12:02)
[2018-11-02] MEDS ORDERED: ACETAMINOPHEN 325 MG TABLET (FP) PO PRN (12:02)
[2018-11-02] MEDS ORDERED: MAGNESIUM HYDROX 2400MG/30ML ORAL SUSPENSION 30 ML CUP PO PRN (12:02)
[2018-11-02] MEDS ORDERED: MAG HYDROX/AL HYDROX/SIMETH 30 ML UNIT-DOSE CUP PO PRN (12:02)
--- NOTE | 2018-11-02 12:06 | HP ---
[facility] Rehab Assess/Revision - Admission History Admitted to Rehab from: [facility] Date of Admission to Rehab: 11/02/2018 - Vital signs Vital Signs: NOTED; STABLE. - Findings Detox History & Physical reviewed: Yes Concur with findings: Yes Comments/Additional Findings: PATIENT'S MEDICAL / MEDICATION HISTORY REVIEWED PRIOR TO DISCHARGE FROM DETOX UNIT. TREATMENT FOR REACTIVE RPR STARTED WHILE PATIENT WAS ADMITTED FOR DETOX TO BE CONTINUED WHILE PATIENT IS ADMITTED FOR REHAB. PATIENT WAS DISCHARGED FROM DETOX UNIT TO BE TAKEN OVER TO REHAB UNIT IN STABLE MEDICAL CONDITION. Inpatient Rehab Admission - Rehab Decision to Admit Inpatient rehab admission?: Yes - Initial Determination Are CD services needed?: Yes Free of communicable disease: Yes Not in need of hospitalization: Yes - Rehab Admission Criteria Previous failed treatment: Yes Poor recovery environment: Yes Comorbidities: Yes Lacks judgement: No Patient is meeting Inpatient Rehab admission criteria:: Yes
[2018-11-02] MEDS: DOXYCYCLINE HYCLATE 100 MG TABLET PO SCH (17:52)
[2018-11-02] MEDS: BACITRACIN 15 GM TUBE TOPICAL OINTMENT TP SCH (22:00)
[2018-11-02] MEDS ORDERED: MELATONIN 5 MG TABLETS PO PRN (22:00)
[2018-11-02] MEDS: THIAMINE HCL 100 MG TABLET (FP) PO SCH (22:00)
[2018-11-03] MEDS: DOXYCYCLINE HYCLATE 100 MG TABLET PO SCH ×2 (10:02→17:02)
[2018-11-03] MEDS: PRENATAL VITAMINS W/ FOLIC ACID TABLET (FP) PO SCH (10:03)
[2018-11-03] MEDS: NICOTINE 21 MG/24 HOURS TOPICAL PATCH TD SCH (10:03)
[2018-11-03] MEDS: BACITRACIN 15 GM TUBE TOPICAL OINTMENT TP SCH ×2 (10:04→21:29)
--- NOTE | 2018-11-03 13:27 | CONSULT ---
[facility] Psychiatric Consult - Data Date of interview: 11/03/18 Admission source: [facility] Identifying data: Patient was approached for the psychiatric evaluation. Mr Verduzco refused. Staff is made aware.
[2018-11-03] MEDS: THIAMINE HCL 100 MG TABLET (FP) PO SCH (21:29)
[2018-11-04] MEDS: NICOTINE 21 MG/24 HOURS TOPICAL PATCH TD SCH (09:37)
[2018-11-04] MEDS: DOXYCYCLINE HYCLATE 100 MG TABLET PO SCH ×2 (09:37→17:00)
[2018-11-04] MEDS: PRENATAL VITAMINS W/ FOLIC ACID TABLET (FP) PO SCH (09:37)
[2018-11-04] MEDS: BACITRACIN 15 GM TUBE TOPICAL OINTMENT TP SCH ×2 (09:38→21:47)
[2018-11-04] MEDS: THIAMINE HCL 100 MG TABLET (FP) PO SCH (21:47)
[2018-11-05] MEDS: PRENATAL VITAMINS W/ FOLIC ACID TABLET (FP) PO SCH (09:40)
[2018-11-05] MEDS: DOXYCYCLINE HYCLATE 100 MG TABLET PO SCH ×2 (09:40→17:07)
[2018-11-05] MEDS: BACITRACIN 15 GM TUBE TOPICAL OINTMENT TP SCH ×2 (09:41→22:16)
[2018-11-05] MEDS: NICOTINE 21 MG/24 HOURS TOPICAL PATCH TD SCH (09:41)
[2018-11-05] MEDS: THIAMINE HCL 100 MG TABLET (FP) PO SCH (22:16)
[2018-11-06] MEDS: PRENATAL VITAMINS W/ FOLIC ACID TABLET (FP) PO SCH (10:55)
[2018-11-06] MEDS: DOXYCYCLINE HYCLATE 100 MG TABLET PO SCH ×2 (10:55→17:29)
[2018-11-06] MEDS: NICOTINE 21 MG/24 HOURS TOPICAL PATCH TD SCH (11:00)
[2018-11-06] MEDS: BACITRACIN 15 GM TUBE TOPICAL OINTMENT TP SCH ×2 (11:00→22:08)
[2018-11-06] MEDS: THIAMINE HCL 100 MG TABLET (FP) PO SCH (22:08)
[2018-11-07 06:57] VITALS: TEMP 98.2
[2018-11-07] MEDS: DOXYCYCLINE HYCLATE 100 MG TABLET PO SCH ×2 (10:52→17:02)
[2018-11-07] MEDS: NICOTINE 21 MG/24 HOURS TOPICAL PATCH TD SCH (10:52)
[2018-11-07] MEDS: PRENATAL VITAMINS W/ FOLIC ACID TABLET (FP) PO SCH (10:52)
[2018-11-07] MEDS: BACITRACIN 15 GM TUBE TOPICAL OINTMENT TP SCH ×2 (10:52→22:18)
[2018-11-07] MEDS: THIAMINE HCL 100 MG TABLET (FP) PO SCH (22:18)
[2018-11-08 07:27] VITALS: BP 137/89; PULSE 79
[2018-11-08] MEDS: PRENATAL VITAMINS W/ FOLIC ACID TABLET (FP) PO SCH (10:18)
[2018-11-08] MEDS: DOXYCYCLINE HYCLATE 100 MG TABLET PO SCH ×2 (10:18→17:46)
[2018-11-08] MEDS: BACITRACIN 15 GM TUBE TOPICAL OINTMENT TP SCH ×2 (10:19→22:13)
[2018-11-08] MEDS: NICOTINE 21 MG/24 HOURS TOPICAL PATCH TD SCH (10:19)
[2018-11-08] MEDS: THIAMINE HCL 100 MG TABLET (FP) PO SCH (22:13)
[2018-11-09] MEDS ORDERED: PT OWN MED DRAWER 7, Y5N ONE ×2 (08:56→10:49)
[2018-11-09] MEDS: PRENATAL VITAMINS W/ FOLIC ACID TABLET (FP) PO SCH (09:57)
[2018-11-09] MEDS: DOXYCYCLINE HYCLATE 100 MG TABLET PO SCH (09:57)
[2018-11-09] MEDS: NICOTINE 21 MG/24 HOURS TOPICAL PATCH TD SCH (09:58)
[2018-11-09] MEDS: BACITRACIN 15 GM TUBE TOPICAL OINTMENT TP SCH (09:58)
--- NOTE | 2018-11-09 10:11 | PN ---
[facility] Progress Note (SOAP) Subjective: Patient is being discharged today. Objective: RPR was positive for syphilis. A+Ox3, no neurological deficits noted. Lungs clear, heart sounds regular, abd soft, non-tender, non-distended, +BS. 11/09/18 10:09 Vital Signs (72 hours) 11/07/18 11/07/18 11/07/18 00:30 03:30 06:56 Temperature 98.2 F Pulse Rate 90 Respiratory 18 18 18 Rate Blood Pressure 125/76 11/08/18 11/08/18 11/08/18 00:30 03:30 07:26 Temperature 98.2 F Pulse Rate 79 Respiratory 18 18 18 Rate Blood Pressure 137/89 11/09/18 11/09/18 00:30 03:30 Temperature Pulse Rate Respiratory 18 18 Rate Blood Pressure Assessment: Medically stable for discharge Discharge Dx: [place] ETOH dependence Cocaine Dependence HIV infection PTSD Plan: Primary care and aftercare at [facility]. Prescriptions transmitted to pharmacy. Strongly encouraged patient to complete the prescription for doxycycline and explained the need to complete treatment for syphilis. Patient understood teaching and agreed.
== END 2018-11-09 10:55 | disposition home or self-care (01) | DRG 772 ==
LOC: YASAS 11:45 → Y3W 11:46
PROVIDERS: ADMIT Neuromusculoskeletal Medicine & OMM; ATTEND Neuromusculoskeletal Medicine & OMM
PROC: HZ42ZZZ Group Counseling for Substance Abuse Treatment, Cognitive-Behavioral (ICD-10-PCS; principal; 2018-11-02)
DX: F10.20 Alcohol dependence, uncomplicated (principal); F14.20 Cocaine dependence, uncomplicated; F43.10 Post-traumatic stress disorder, unspecified; Z21 Asymptomatic human immunodeficiency virus [HIV] infection status; A53.9 Syphilis, unspecified

== ENCOUNTER 2019-02-01 14:12 | Inpatient (IN) | payer OTHER ==
[2019-02-01 18:41] VITALS: BMI 19.1
--- NOTE | 2019-02-01 20:01 | HP ---
CIWA Score - Admission Criteria OASAS Guidelines: Admission for Medically Managed Detox: Requires at least one of the followin. CIWA greater than 12 2. Seizures within the past 24 hours 3. Delirium tremens within the past 24 hours 4. Hallucinations within the past 24 hours 5. Acute intervention needed for co occurring medical disorder 6. Acute intervention needed for co occurring psychiatric disorder 7. Severe withdrawal that cannot be handled at a lower level of care (continued vomiting, continued diarrhea, abnormal vital signs) requiring intravenous medication and/or fluids 8. Admission ROS S - HPI Chief Complaint: here for crystal meth rehab Allergies/Adverse Reactions: Allergies Allergy/AdvReac Type Severity Reaction Status Date / Time penicillin G Allergy Verified 11/01/18 11:47 erythromycin base AdvReac burning Verified 11/02/18 13:15 during urination History of Present Illness: 54 yo with HIV pos- has not taken meds in more than 8 months b/c drug use. Was last here 3 months ago- relapsed after a few weeks. 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 Using $200-300/week of crystal meth. Not eating or sleeping. Lost weight. Uses THC for appetite- small amount. Not using alcohol or other illicits PCP- [facility]- no recent controlled substances Utox- THC, met - Ebola screening Have you traveled outside of the country in the last 21 days: No (N) Have you had contact with anyone from an Ebola affected area: No Do you have a fever: No Patient History - Patient Medical History Hx Anemia: No Hx Asthma: No Hx Chronic Obstructive Pulmonary Disease (COPD): No Hx Cancer: No Hx Cardiac Disorders: No Hx Congestive Heart Failure: No Hx Hypertension: Yes Hx Hypercholesterolemia: No Hx Pacemaker: No HX Cerebrovascular Accident: No Hx Seizures: No Hx Dementia: No Hx Diabetes: No Hx Gastrointestinal Disorders: No Hx Liver Disease: No Hx Genitourinary Disorders: No Hx Sexually Transmitted Disorders: Yes (syphilis completed tx last 3 years ago) Hx Renal Disease (ESRD): No Hx Thyroid Disease: No Hx Human Immunodeficiency Virus (HIV): Yes (DX 1997 RX GENVOYA NON COMPLAINT FOR OVER A YEAR) Hx Hepatitis C: No Hx Depression: Yes Hx Suicide Attempt: Yes (took od pills last 20yrs ago..) Hx Bipolar Disorder: No Hx Schizophrenia: No - Patient Surgical History Past Surgical History: Yes Hx Neurologic Surgery: No Hx Cataract Extraction: No Hx Cardiac Surgery: No Hx Lung Surgery: No Hx Breast Surgery: No Hx Breast Biopsy: No Hx Abdominal Surgery: No Hx Appendectomy: No Hx Cholecystectomy: No Hx Genitourinary Surgery: No Hx Section: No Hx Orthopedic Surgery: No Hx Hysterectomy: No Other Surgical History: TONSILLECTOMY A CHILD Anesthesia Reaction: No - PPD History Date: 10/31/18 Results: 0 mm - Smoking Cessation Smoking history: Current every day smoker Have you smoked in the past 12 months: Yes Aproximately how many cigarettes per day: 20 Cigars Per Day: 0 Hx Chewing Tobacco Use: No Initiated information on smoking cessation: Yes 'Breaking Loose' booklet given: 02/01/19 - Substances abused Crystal meth Substance route: Smoking Frequency: Daily Amount used: $300-400 Age of first use: 50 Date of last use: 01/29/19 Cocaine Substance route: Smoking Frequency: 1-3 times last 30 days Amount used: $40-50 Age of first use: 20 Date of last use: 10/26/18 Alcohol Substance route: Oral Frequency: 1-2 times per week Amount used: 1/5 , 6 pack Age of first use: 24 Date of last use: 01/28/19 Marijuana/Hashish Substance route: Smoking Frequency: Daily Amount used: $10-20 Age of first use: 15 Date of last use: 01/11/19 Family Disease History - Family Disease History Family Disease History: Diabetes: Mother, Other: Father (DRUG AND ALCOHOL) Admission Physical Exam [facility] - Vital Signs Vital Signs: Vital Signs - 24 hr 02/01/19 02/01/19 18:35 19:19 Temperature 98.5 F 98.5 F Pulse Rate 88 88 Respiratory 16 16 Rate Blood Pressure 121/87 121/87 - Physical General Appearance: Yes: Cachetic Breathalyzer - Breathalyzer Breathalyzer: 0 Urine Drug Screen - Test Device Lot number: [id number] Expiration date: 10/29/20 - Control Is test valid?: Yes - Results Drug screen NEGATIVE: No Urine drug screen results: THC-Marijuana, MET-Methamphetamine Inpatient Rehab Admission - Rehab Decision to Admit Inpatient rehab admission?: Yes - Initial Determination Are CD services needed?: Yes Free of communicable disease: Yes Not in need of hospitalization: Yes - Rehab Admission Criteria Previous failed treatment: Yes Poor recovery environment: Yes Comorbidities: Yes Lacks judgement: Yes Patient is meeting Inpatient Rehab admission criteria:: Yes (rehab from crystal meth use)
[2019-02-01] MEDS ORDERED: NICOTINE POLACRILEX 2 MG GUM BC PRN (20:05)
[2019-02-01] MEDS ORDERED: MAG HYDROX/AL HYDROX/SIMETH 30 ML UNIT-DOSE CUP PO PRN (20:05)
[2019-02-01] MEDS ORDERED: MAGNESIUM CITRATE 300 ML BOTTLE PO PRN (20:05)
[2019-02-01] MEDS ORDERED: MAGNESIUM HYDROX 2400MG/30ML ORAL SUSPENSION 30 ML CUP PO PRN (20:05)
[2019-02-01] MEDS ORDERED: guaiFENesin 200 MG/10 ML 10 ML UNIT-DOSE CUPS PO PRN (20:05)
[2019-02-01] MEDS ORDERED: ACETAMINOPHEN 325 MG TABLET (FP) PO PRN (20:05)
[2019-02-01] MEDS ORDERED: LOPERAMIDE HCL 2 MG CAPSULE PO PRN (20:05)
[2019-02-01] MEDS ORDERED: hydrOXYzine PAMOATE 25 MG CAPSULE (FP) PO PRN (20:05)
[2019-02-01] MEDS ORDERED: P-EPHED 60MG/TRIPROLIDI 2.5MG TABLET PO PRN (20:05)
[2019-02-01] MEDS ORDERED: MENTHOL/PHENOL 1 EACH UD MM PRN (20:05)
[2019-02-01] MEDS ORDERED: IBUPROFEN 400 MG TABLET (FP) PO PRN (20:05)
[2019-02-01] MEDS ORDERED: MELATONIN 5 MG TABLETS PO PRN (22:00)
[2019-02-01] MEDS: THIAMINE HCL 100 MG TABLET (FP) PO SCH (22:11)
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
[2019-02-02] MEDS: PRENATAL VITAMINS W/ FOLIC ACID TABLET (FP) PO SCH (10:32)
[2019-02-02 15:01] LABS: PH,URINE 6.5 (5.0-8.0); URINE APPEARANCE CLEAR; URINE BILIRUBIN NEGATIVE (NEGATIVE); URINE COLOR YELLOW; URINE GLUCOSE (UA) NEGATIVE (NEGATIVE); URINE KETONE NEGATIVE (NEGATIVE); URINE LEUK ESTERASE NEGATIVE (NEGATIVE); URINE NITRITE NEGATIVE (NEGATIVE); URINE PROTEIN NEGATIVE (NEGATIVE); URINE UROBILINOGEN 0.2 mg/dL (0.2-1.0)
[2019-02-02 15:02] LABS: HEMATOCRIT 33.2 % (35.4-49); HEMOGLOBIN 11.2 GM/dL (11.7-16.9); MCH 28.8 pg (25.7-33.7); MCHC 33.8 g/dl (32.0-35.9); MEAN CELL VOLUME 85.1 fl (80-96); MEAN PLT VOLUME 7.4 fl (7.5-11.1); PLATELET COUNT 234 K/MM3 (134-434); RDW 14.9 % (11.9-15.9); WHITE BLOOD COUNT 3.6 K/mm3 (4.0-10.0)
[2019-02-02 15:25] LABS: BILIRUBIN,TOTAL 0.2 mg/dL (0.2-1); BLOOD UREA NITROGEN 12.6 mg/dL (7-18); CALCIUM 9.1 mg/dL (8.5-10.1); CREATININE 0.8 mg/dL (0.55-1.3); POTASSIUM 4.1 mmol/L (3.5-5.1); TOT PROT 8.7 g/dl (6.4-8.2)
[2019-02-02] MEDS: traZODone HCL 100 MG TABLET (FP) PO SCH (21:53)
[2019-02-02] MEDS: THIAMINE HCL 100 MG TABLET (FP) PO SCH (21:53)
[2019-02-03] MEDS: PRENATAL VITAMINS W/ FOLIC ACID TABLET (FP) PO SCH (10:34)
--- NOTE | 2019-02-03 15:01 | PN ---
[facility] Progress Note Note: Patient refusing medications. He was made aware of the consequence to his health and understood the teaching. Will continue to monitor and encourage to take his medication.
--- NOTE | 2019-02-03 15:03 | DS ---
[facility] Rehab Discharge Summary - [facility] Rehab Discharge Summary Admission Date: 02/01/19 Discharge Date: 02/03/19 - History Present History: Alcohol dependence, Cannabis dependence, Cocaine dependence Pertinent Past History: 54 yo with HIV pos- has not taken meds in more than 8 months b/c drug use. Was last here 3 months ago- relapsed after a few weeks. Was at [facility] unit for psychosis related to crystal meth, was then referred here for rehab. Using $200-300/week of crystal meth. Not eating or sleeping. Lost weight. Uses THC for appetite- small amount. Not using alcohol or other illicits PCP- [facility] - Discharge Physical Exam Vital Signs: Vital Signs Temperature 98.1 F 02/03/19 06:46 Pulse Rate 87 02/03/19 06:46 Respiratory Rate 18 02/03/19 06:46 Blood Pressure 125/96 02/03/19 06:46 O2 Sat by Pulse Oximetry (%) - Medication Discharge Medications: Ambulatory Orders NK [No Known Home Medication] 02/01/19 - Discharge Instructions Diet, activity, other medical instructions: Diet: Activity: Other medical instructions:
[2019-02-03 17:46] LABS: RPR REACTIVE 1:1 (NONREACTIVE); TREPONEMA ANTIBODY REACTIVE (NONREACTIVE)
[2019-02-03] MEDS: traZODone HCL 100 MG TABLET (FP) PO SCH (21:19)
[2019-02-03] MEDS: THIAMINE HCL 100 MG TABLET (FP) PO SCH (21:20)
[2019-02-04] MEDS: PRENATAL VITAMINS W/ FOLIC ACID TABLET (FP) PO SCH (11:00)
[2019-02-04] MEDS: THIAMINE HCL 100 MG TABLET (FP) PO SCH (21:12)
[2019-02-04] MEDS: traZODone HCL 100 MG TABLET (FP) PO SCH (21:12)
[2019-02-05] MEDS: PRENATAL VITAMINS W/ FOLIC ACID TABLET (FP) PO SCH (10:35)
[2019-02-05] MEDS: traZODone HCL 100 MG TABLET (FP) PO SCH (21:48)
[2019-02-05] MEDS: THIAMINE HCL 100 MG TABLET (FP) PO SCH (21:48)
[2019-02-06] MEDS: PRENATAL VITAMINS W/ FOLIC ACID TABLET (FP) PO SCH (09:45)
[2019-02-06] MEDS: traZODone HCL 100 MG TABLET (FP) PO SCH (21:18)
[2019-02-06] MEDS: THIAMINE HCL 100 MG TABLET (FP) PO SCH (21:18)
[2019-02-07] MEDS: PRENATAL VITAMINS W/ FOLIC ACID TABLET (FP) PO SCH (10:50)
--- NOTE | 2019-02-07 10:56 | PN ---
[facility] Progress Note Note: Patient c/o rash to forehead. ROS: + itching to forehead area. Vital Signs Temperature 98.3 F 02/07/19 06:41 Pulse Rate 83 02/07/19 06:41 Respiratory Rate 18 02/07/19 06:41 Blood Pressure 135/95 02/07/19 06:41 O2 Sat by Pulse Oximetry (%) PE: alert and oriented x 3 skin warm and dry + pimple like rash to forehead area, mild redness due to scratching no visible lesions, ulcerations A/P: Rash to forehead Will order Hydrocortisone 1% cream to AA bid x one week monitor clinically
[2019-02-07] MEDS: HYDROCORTISONE 1% TOPICAL CREAM 30 GM TUBE TP SCH ×2 (14:17→21:24)
[2019-02-07] MEDS: traZODone HCL 100 MG TABLET (FP) PO SCH (21:24)
[2019-02-07] MEDS: THIAMINE HCL 100 MG TABLET (FP) PO SCH (21:24)
[2019-02-08 06:48] VITALS: TEMP 98.2
[2019-02-08] MEDS: PRENATAL VITAMINS W/ FOLIC ACID TABLET (FP) PO SCH (09:41)
[2019-02-08] MEDS: HYDROCORTISONE 1% TOPICAL CREAM 30 GM TUBE TP SCH ×2 (09:41→22:00)
[2019-02-08] MEDS: THIAMINE HCL 100 MG TABLET (FP) PO SCH (22:00)
[2019-02-08] MEDS: traZODone HCL 100 MG TABLET (FP) PO SCH (22:00)
[2019-02-09] MEDS: PRENATAL VITAMINS W/ FOLIC ACID TABLET (FP) PO SCH (10:47)
[2019-02-09] MEDS: HYDROCORTISONE 1% TOPICAL CREAM 30 GM TUBE TP SCH ×2 (10:47→21:10)
--- NOTE | 2019-02-09 12:01 | DS ---
[facility] Rehab Discharge Summary - [facility] Rehab Discharge Summary Admission Date: 02/01/19 Discharge Date: 02/10/19 - History Present History: Alcohol dependence, Cannabis dependence, Cocaine dependence Pertinent Past History: History of Present Illness: rehab formultiple [facility]. Patient in [facility] ED from 10/27-. patient admitting continued alcohol use Crystal meth use began at age 50. Cocaine use began at age 20. Alcohol use began at age 24. Usual intake about 1/. States last drink today. Marijuana use began at age 15. Last blackout 2 years ago. Denies methadone or any other opiates. Denies hx seizures or overdoses. PMHx: HIV (+); MHHx: Depression; PTSD; States last use of Trazodone was about 8 days ago. No recent visit to Provider. Denies thoughts of harming self or others. - Discharge Physical Exam Vital Signs: Vital Signs Temperature 98.2 F 02/09/19 10:00 Pulse Rate 115 H 02/09/19 10:00 Respiratory Rate 20 02/09/19 10:00 Blood Pressure 140/92 02/09/19 10:00 O2 Sat by Pulse Oximetry (%) Refused vital signs today, 02/10 Pertinent Admission Physical Exam Findings: - Physical General Appearance: No apparent distress HEENTM: Normocephalic, DIANA, Respiratory: Lungs Clear, Neck: Supple Cardiology: S1, S2 Abdominal: +Bowel Sounds, Musculoskeletal: full range of Motion, Gait Steady Neurological: mower mechanic II-XII intact Motor Strength 5/5 Integumentary:Color consistent throughout trunk and extremities. - Treatment Discharge Condition: Outpatient referral accepted (Patient will return to [facility] program for aftercare and primary HIV care.) Hospital Course: Patient attended some groups; met with counselor, had one meeting with psychiatric provider. Was seen by medical provider for skin rash, treated without consequences. Medically stable for discharge. - Medication Discharge Medications: Ambulatory Orders NK [No Known Home Medication] 02/01/19 - Medication-Assisted Treatment (MAT) Medication-Assisted Treatment (MAT): No - Discharge Instructions Diet, activity, other medical instructions: Diet: as tolerated Activity: as tolerated Other medical instructions: Please keep aftercare appointment and keep PCP/HIV care appointment. - Diagnosis (1) Alcohol dependence Current Visit: Yes Status: Acute Qualifiers: Substance use status: uncomplicated Qualified Code(s): F10.20 - Alcohol dependence, uncomplicated (2) Cannabis dependence Current Visit: Yes Status: Chronic (3) Cocaine dependence Current Visit: Yes Status: Chronic Qualifiers: Substance use status: uncomplicated Qualified Code(s): F14.20 - Cocaine dependence, uncomplicated (4) Methamphetamine dependence Current Visit: Yes Status: Chronic - Follow-up Referral Minutes to complete discharge: 20 - AMA Did Patient Leave Against Medical Advice: No
[2019-02-09] MEDS: THIAMINE HCL 100 MG TABLET (FP) PO SCH (21:10)
[2019-02-09] MEDS: traZODone HCL 100 MG TABLET (FP) PO SCH (21:10)
[2019-02-10 06:50] VITALS: BP 132/97; PULSE 94
== END 2019-02-10 09:16 | disposition home or self-care (01) | DRG 772 ==
LOC: YASAS 14:12 → Y3W 21:03
PROVIDERS: ADMIT Neuromusculoskeletal Medicine & OMM; ATTEND Neuromusculoskeletal Medicine & OMM
PROC: HZ42ZZZ Group Counseling for Substance Abuse Treatment, Cognitive-Behavioral (ICD-10-PCS; principal; 2019-02-01)
DX: F10.20 Alcohol dependence, uncomplicated (principal); F14.20 Cocaine dependence, uncomplicated; F15.20 Other stimulant dependence, uncomplicated; F12.20 Cannabis dependence, uncomplicated; F17.213 Nicotine dependence, cigarettes, with withdrawal; F33.1 Major depressive disorder, recurrent, moderate; F43.10 Post-traumatic stress disorder, unspecified; I10 Essential (primary) hypertension; Z21 Asymptomatic human immunodeficiency virus [HIV] infection status; R21 Rash and other nonspecific skin eruption; R76.11 Nonspecific reaction to tuberculin skin test without active tuberculosis; D64.9 Anemia, unspecified; Z91.14 Patient's other noncompliance with medication regimen; Z87.438 Personal history of other diseases of male genital organs; Z88.0 Allergy status to penicillin; Z88.1 Allergy status to other antibiotic agents; Z91.5 Personal history of self-harm
CPT/HCPCS: 36415; 80053; 81003; 85027; 86480; 86593; 86780

== ENCOUNTER 2019-12-23 12:23 | Inpatient (IN) | payer OTHER ==
--- NOTE | 2019-12-23 13:19 | BHS.RME ---
Substance Use & Tx History - Substance Use History Alcohol Substance amount: 1-2 pints vodka Frequency of use: Daily Substance route: Oral Date of Last Use: 12/22/19 Marijuana/Hashish Substance amount: 1 joint Frequency of use: Less than 3 times per week Substance route: Smoking Date of Last Use: 11/23/19 Nicotine Substance amount: 1 pack Frequency of use: Less than 3 times per week Substance route: Smoking Date of Last Use: 12/23/19 Methamphetamine Substance amount: 1 gram Frequency of use: Less than 3 times per week Substance route: Smoking Date of Last Use: 12/20/19 Physical/Psych/Mental Status - Behavior General Behavior: Increased activity (restlessness, agitation) Eye Contact: Normal - Cooperativeness Cooperativeness: Cooperative - Thinking Thought Processes: Tight, Logical, Goal Directed - Physical Health Problems Is patient presently having any pain?: No Does patient presently have any injuries (include location): No Does patient currently have a fever: No Is patient : No CIWA Nausea/Vomitin-Mild Nausea/No Vomiting Muscle Tremors: 4-Moderate,w/Arms Extend Anxiety: 3 Agitation: 3 Paroxysmal Sweats: 4-Forehead w/Sweat Beads Orientation: 1-Uncertain about Date Tacttile Disturbances: 1-Very Mild Itch/Numbness Auditory Disturbances: 0-None Visual Disturbances: 0-None Headache: 3-Moderate CIWA-Ar Total Score: 20
--- NOTE | 2019-12-23 16:55 | HP ---
CIWA Score Nausea/Vomitin-No Nausea/No Vomiting Muscle Tremors: 4-Moderate,w/Arms Extend Anxiety: 3 Agitation: 3 Paroxysmal Sweats: 3 Orientation: 1-Uncertain about Date Tacttile Disturbances: 1-Very Mild Itch/Numbness Auditory Disturbances: 0-None Visual Disturbances: 0-None Headache: 3-Moderate (States headache in 'back of head' unrelated to injury is a "5") CIWA-Ar Total Score: 18 - Admission Criteria [facility] Guidelines: Admission for Medically Managed Detox: Requires at least one of the followin. CIWA greater than 12 2. Seizures within the past 24 hours 3. Delirium tremens within the past 24 hours 4. Hallucinations within the past 24 hours 5. Acute intervention needed for co occurring medical disorder 6. Acute intervention needed for co occurring psychiatric disorder 7. Severe withdrawal that cannot be handled at a lower level of care (continued vomiting, continued diarrhea, abnormal vital signs) requiring intravenous medication and/or fluids 8. Patient presents the following: CIWA greater than 12 (HIV+) Admission Criteria Met: Admission criteria met Admitting History and Physical - Smoking History Smoking history: Current every day smoker Have you smoked in the past 12 months: Yes Aproximately how many cigarettes per day: 20 - Alcohol/Substance Use Hx Alcohol Use: Yes Admission ROS S - [facility] Chief Complaint: "I have a problem with alcohol and drugs and goal is to stop using. I want detox and rehab." Allergies/Adverse Reactions: Allergies Allergy/AdvReac Type Severity Reaction Status Date / Time penicillin G Allergy Verified 12/23/19 18:00 erythromycin base AdvReac burning Verified 12/23/19 18:00 during urination History of Present Illness: 54 yo presents w/ alcohol withdrawal symptoms seeking detox. Patient referred here today, from [facility], for detox. Patient in [facility] ED from 12/21-. Last in [facility] in 01/2019. Last detox 09/2019 JENNIFER: 0.0 UTox+ MET Denies hx seizures or overdoses. Alcohol use began at age 24. Currently drinking 1-2 pints vodka/day. States last drink yesterday. Crystal meth use began at age 50. Currently uses every day and totals 1 gm/week. Last used 2 days ago. Nicotine use began at age 18. Currently smokes 1 PPD. PMHx: HIV (+) (not being f/u in a ID/HIV program. States last took meds about 10 days ago. Not given while at [facility]) Will not re-start HIV meds during this hospitalization. Patient encouraged to get bloods and eval by an ID/HIV specialist for evaluation of medication needs. Patient verbalizes an understanding. MHHx: Schizo-affective Disorder. Depression; SD; States last took medication 10 days ago. No recent visit to Provider. States medications prescribed in emergency room. Denies thoughts of harming self or others. SHx: Homeless. Unemployed. Denies legal issues. Patient Name: Donte Verduzco Date: 1965 Address: [facility] [place] [address] Sex: Male Rx Written Rx Dispensed Drug Quantity Days Supply Prescriber Name Payment Method Dispenser 10/17/2019 10/17/2019 chlordiazepoxide 25 mg capsule 11 2 Matthew Chong) Medicaid [facility] Exam Limitations: No Limitations - Ebola screening Have you traveled outside of the country in the last 21 days: No (Denies COVID exposure) Have you had contact with anyone from an Ebola affected area: No Have you been sick,other than usual withdrawal symptoms: No Do you have a fever: No - Review of Systems Constitutional: Chills, Diaphoresis, Weight Stable EENT: reports: Blurred Vision (States needs reading glasses.) Respiratory: reports: No Symptoms reported Cardiac: reports: No Symptoms Reported GI: reports: No Symptoms Reported : reports: No Symptoms Reported Musculoskeletal: reports: No Symptoms Reported Integumentary: reports: Rash (States rash on back x years) Neuro: reports: Headache (States headache is a "5"), Tremors Endocrine: reports: No Symptoms Reported Hematology: reports: Other (HIV+) Psychiatric: reports: Agitated, Anxious, Depressed (Denies thoughts of harming self or others) Patient History - Patient Medical History Hx Anemia: No Hx Asthma: No Hx Chronic Obstructive Pulmonary Disease (COPD): No Hx Cancer: No Hx Cardiac Disorders: No Hx Congestive Heart Failure: No Hx Hypertension: No Hx Hypercholesterolemia: No Hx Pacemaker: No HX Cerebrovascular Accident: No Hx Seizures: No Hx Dementia: No Hx Diabetes: No Hx Gastrointestinal Disorders: No Hx Liver Disease: No Hx Genitourinary Disorders: No Hx Sexually Transmitted Disorders: No Hx Renal Disease (ESRD): No Hx Thyroid Disease: No Hx Human Immunodeficiency Virus (HIV): Yes (DX 1998 RX GENVOYA NON COMPLAINT FOR OVER A YEAR) Hx Hepatitis C: No Hx Depression: Yes Hx Suicide Attempt: Yes (took od pills last 20yrs ago..) Hx Bipolar Disorder: No Hx Schizophrenia: No - Patient Surgical History Past Surgical History: Yes Hx Neurologic Surgery: No Hx Cataract Extraction: No Hx Cardiac Surgery: No Hx Lung Surgery: No Hx Breast Surgery: No Hx Breast Biopsy: No Hx Abdominal Surgery: No Hx Appendectomy: No Hx Cholecystectomy: No Hx Genitourinary Surgery: No Hx Section: No Hx Orthopedic Surgery: No Hx Hysterectomy: No Other Surgical History: TONSILLECTOMY A CHILD Anesthesia Reaction: No - PPD History Previous Implant?: Yes Documented Results: Negative w/proof Implanted On Prior [facility] Admission?: Yes PPD to be Administered?: Yes - Smoking Cessation Smoking history: Current every day smoker Have you smoked in the past 12 months: Yes Aproximately how many cigarettes per day: 20 Cigars Per Day: 0 Hx Chewing Tobacco Use: No Initiated information on smoking cessation: Yes 'Breaking Loose' booklet given: 12/23/19 - Substance & Tx. History Hx Alcohol Use: Yes Hx Substance Use: Yes Substance Use Type: Alcohol, Cocaine, Marijuana, Tranquilizers (Methamphetamines) Hx Substance Use Treatment: Yes (detox, rehab, ) - Substances abused Marijuana/Hashish Substance route: Smoking Frequency: 1-2 times per week Amount used: 10 dollars Age of first use: 18 Date of last use: 11/30/19 Other Other (specify): Crsytal Methadone Substance route: Injection Frequency: Daily Amount used: 1 gram Age of first use: 50 Date of last use: 12/22/19 Alcohol Substance route: Oral Frequency: Daily Amount used: one pint and a half. Age of first use: 18 Date of last use: 12/23/19 Admission Physical Exam S - Physical General Appearance: Yes: Mild Distress, Thin, Tremorous, Irritable, Sweating ( Increased facial moisture), Anxious HEENTM: Yes: EOMI, Hearing grossly Normal, Normocephalic, Normal Voice, DIANA, Pharynx Normal Respiratory: Yes: Lungs Clear (Pulse Ox= 98 %), Normal Breath Sounds, No Respiratory Distress Neck: Yes: No masses,lesions,Nodules, Supple Breast: Yes: Breast Exam Deferred Cardiology: Yes: Regular Rhythm, Regular Rate, S1, S2 Abdominal: Yes: Flat, Soft, Increased Bowel Sounds, Tenderness (Tenderness mid- upper quad upon palpation. No guarding. No rebound tenderness.) Genitourinary: Yes: Within Normal Limits Back: Yes: Normal Inspection Musculoskeletal: Yes: full range of Motion, Gait Steady Extremities: Yes: Normal Capillary Refill, Tremors Neurological: Yes: senior director of strategy II-XII NML intact, Alert, Motor Strength 5/5, Depressed Affect Integumentary: Yes: Normal Color, Warm, Diaphoresis (Increased facial moisture), Rash (Papular lesions on face, chest, shoulders and back w/ scratch yates.) Lymphatic: Yes: Within Normal Limits - Diagnostic (1) Alcohol dependence with uncomplicated withdrawal Current Visit: Yes Status: Acute (2) HIV (human immunodeficiency virus infection) Current Visit: Yes Status: Chronic Qualifiers: HIV symptom status: unspecified Qualified Code(s): B20 - Human immunodeficiency virus [HIV] disease Comment: Not on HIV medications (3) Methamphetamine dependence Current Visit: Yes Status: Chronic (4) Nicotine dependence Current Visit: Yes Status: Chronic Qualifiers: Nicotine product type: cigarettes Substance use status: uncomplicated Qualified Code(s): F17.210 - Nicotine dependence, cigarettes, uncomplicated (5) Rash and nonspecific skin eruption Current Visit: Yes Status: Chronic Comment: x years (6) Positive RPR test Current Visit: Yes Status: Chronic Comment: 02/02/19: RPR 1:1 Cleared for Admission [facility] - Detox or Rehab [facility] Level of Care: Medically Managed Detox Regimen/Protocol: Librium Claeared for Rehab Admission: No Breathalyzer - Breathalyzer Breathalyzer: 0 Urine Drug Screen - Test Device Lot number: [id number] Expiration date: 01/02/22 - Control Is test valid?: Yes - Results Drug screen NEGATIVE: No Urine drug screen results: MET-Methamphetamine Inpatient Rehab Admission - Rehab Decision to Admit Inpatient rehab admission?: No
[2019-12-23 18:16] VITALS: BMI 20.9
[2019-12-23] MEDS ORDERED: ONDANSETRON *ODT* 4 MG TABLET SL ONE (18:28)
[2019-12-23] MEDS ORDERED: METHOCARBAMOL 500 MG TABLET PO PRN (18:28)
[2019-12-23] MEDS ORDERED: MAG HYDROX/AL HYDROX/SIMETH 30 ML UNIT-DOSE CUP PO PRN (18:28)
[2019-12-23] MEDS ORDERED: MAGNESIUM CITRATE 300 ML BOTTLE PO PRN (18:28)
[2019-12-23] MEDS ORDERED: IBUPROFEN 400 MG TABLET (FP) PO PRN (18:28)
[2019-12-23] MEDS ORDERED: ACETAMINOPHEN 325 MG TABLET (FP) PO PRN ×2 (18:28)
[2019-12-23] MEDS ORDERED: chlordiazePOXIDE HCL 25 MG CAPSULE PO PRN (18:28)
[2019-12-23] MEDS ORDERED: BISMUTH SUBSALICYLATE 524 MG/30 ML UD PO PRN (18:28)
[2019-12-23] MEDS ORDERED: NICOTINE POLACRILEX 2 MG GUM BUC PRN (18:28)
[2019-12-23] MEDS ORDERED: MAGNESIUM HYDROX 2400MG/30ML ORAL SUSPENSION 30 ML CUP PO PRN (18:28)
[2019-12-23] MEDS ORDERED: MENTHOL/PHENOL 1 EACH UD MM PRN (18:28)
[2019-12-23] MEDS ORDERED: TUBERCULIN PPD 5 TU/0.1ML VIAL ID ONE (19:37)
[2019-12-23] MEDS: hydrOXYzine PAMOATE 25 MG CAPSULE (FP) PO PRN ×2 (19:39→22:22)
[2019-12-23] MEDS: MELATONIN 5 MG TABLETS PO SCH (22:22)
[2019-12-23] MEDS: THIAMINE HCL 100 MG TABLET (FP) PO SCH (22:22)
[2019-12-23] MEDS: chlordiazePOXIDE HCL 25 MG CAPSULE PO SCH (22:23)
[2019-12-24] MEDS: chlordiazePOXIDE HCL 25 MG CAPSULE PO SCH ×4 (06:41→22:57)
[2019-12-24] MEDS: NICOTINE 21 MG/24 HOURS TOPICAL PATCH TD SCH (11:15)
[2019-12-24] MEDS: PRENATAL VITAMINS W/ FOLIC ACID TABLET (FP) PO SCH (11:16)
[2019-12-24] MEDS: BACITRACIN 0.9 GM PACKET TP SCH ×2 (11:16→22:57)
[2019-12-24] MEDS: hydrOXYzine PAMOATE 25 MG CAPSULE (FP) PO PRN ×2 (11:18→17:44)
--- NOTE | 2019-12-24 16:45 | PN ---
S CIWA - CIWA Score Nausea/Vomitin-No Nausea/No Vomiting Muscle Tremors: 3 Anxiety: 3 Agitation: 1-Slight > Activity Paroxysmal Sweats: 2 Orientation: 0-Oriented Tacttile Disturbances: 0-None Auditory Disturbances: 0-None Visual Disturbances: 0-None Headache: 3-Moderate CIWA-Ar Total Score: 12 BHS Progress Note (SOAP) Subjective: Anxious, H/A, Sweating, Tremors. Objective: Patient A & O X 3; In No Acute Distress. 12/24/19 16:44 Vital Signs Temperature 98 F 12/24/19 13:20 Pulse Rate 85 12/24/19 13:20 Respiratory Rate 20 12/24/19 13:20 Blood Pressure 111/70 12/24/19 13:20 O2 Sat by Pulse Oximetry (%) 97 12/24/19 09:55 COVID-19 Test result pending. Patient refused to have other Detox admission labs drawn. 12/24/19 16:45 Assessment: 12/24/19 16:45 WITHDRAWAL SYMPTOMS. Plan: Continue Detox.
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
[2019-12-24] MEDS: THIAMINE HCL 100 MG TABLET (FP) PO SCH (22:57)
[2019-12-24] MEDS: MELATONIN 5 MG TABLETS PO SCH (22:57)
[2019-12-25] MEDS: chlordiazePOXIDE HCL 25 MG CAPSULE PO SCH ×4 (07:11→22:32)
[2019-12-25] MEDS: BACITRACIN 0.9 GM PACKET TP SCH ×2 (11:00→22:32)
[2019-12-25] MEDS: NICOTINE 21 MG/24 HOURS TOPICAL PATCH TD SCH (11:01)
[2019-12-25] MEDS: PRENATAL VITAMINS W/ FOLIC ACID TABLET (FP) PO SCH (11:01)
--- NOTE | 2019-12-25 11:14 | PN ---
S CIWA - CIWA Score Nausea/Vomitin-Mild Nausea/No Vomiting Muscle Tremors: 2 Anxiety: 3 Agitation: 1-Slight > Activity Paroxysmal Sweats: 1-Minimal Palms Moist Orientation: 0-Oriented Tacttile Disturbances: 1-Very Mild Itch/Numbness Auditory Disturbances: 0-None Visual Disturbances: 1-Very Mild Sensitivity Headache: 0-None Present CIWA-Ar Total Score: 10 BHS Progress Note (SOAP) Subjective: 54 years old male admitted on 12/23/19 for alcohol withdrawal sx management treating with librium detox regiment feeling ok today ate breakfast in room irritable at time but regain self control limited conversation with staff Objective: 12/25/19 11:15 Vital Signs - 24 hr 12/24/19 12/24/19 12/24/19 13:20 17:02 20:12 Temperature 98 F 98.7 F 98.6 F Pulse Rate 85 85 83 Respiratory 20 16 18 Rate Blood Pressure 111/70 112/71 112/70 O2 Sat by Pulse 97 95 Oximetry (%) 12/25/19 12/25/19 06:32 10:09 Temperature 98.7 F 98.9 F Pulse Rate 69 81 Respiratory 19 18 Rate Blood Pressure 111/73 117/73 O2 Sat by Pulse 95 Oximetry (%) 12/25/19 11:17 admission blood work has been cancelled reorder [facility] syphilis Assessment: 12/25/19 11:18 alcohol withdrawal Plan: librium regiment
--- NOTE | 2019-12-25 17:15 | EKG ---
Test Reason : Blood Pressure : / mmHG Vent. Rate : 080 BPM Atrial Rate : 080 BPM P-R Int : 166 ms QRS Dur : 104 ms QT Int : 406 ms P-R-T Axes : 076 075 074 degrees QTc Int : 468 ms NORMAL SINUS RHYTHM NORMAL ECG WHEN COMPARED WITH ECG OF 29-OCT-2018 17:44, NO SIGNIFICANT CHANGE WAS FOUND Confirmed by MD Bay Edward ([id number]) on 12/25/2019 5:14:52 PM Referred By: Confirmed By:Matthew Bay MD
[2019-12-25] MEDS: MELATONIN 5 MG TABLETS PO SCH (22:32)
[2019-12-25] MEDS: THIAMINE HCL 100 MG TABLET (FP) PO SCH (22:32)
[2019-12-26] MEDS ORDERED: chlordiazePOXIDE HCL 10 MG CAPSULE PO PRN
[2019-12-26] MEDS: chlordiazePOXIDE HCL 10 MG CAPSULE PO SCH ×2 (05:51→11:18)
--- NOTE | 2019-12-26 09:36 | DS ---
[facility] Detox Discharge Summary Admission Date: 12/23/19 Discharge Date: 12/26/19 - History Present History: Alcohol Dependence Additional Comments: Pt requests to discharge today stating "I'm fine, I'm going back to my SRO and follow up with [facility] OPD". Pt has a primary care provider Dr. Mayela Rudd @ [address] [place] [address] for medical management. Pt has been encouraged to follow up with his [facility] for re-evaluation of restarting his antiretroviral medications(pt has a hx of noncompliance with meds). Pertinent Past History: Hx HIV+(no current meds) Hx HTN(no med) Hx Anemia(no med) Hx PTSD Hx Schizoaffective Disorder - Physical Exam Results Vital Signs: Vital Signs Temperature 98.2 F 12/26/19 05:46 Pulse Rate 74 12/26/19 05:46 Respiratory Rate 18 12/26/19 05:46 Blood Pressure 110/72 12/26/19 05:46 O2 Sat by Pulse Oximetry (%) 96 12/26/19 05:46 Alert o x 3 nad oob ambulating with steady gait cardiac:s1 s2, rrr lungs:ctab abdomen:soft,+bs,nt,nd extremities:no edema,skin intact. Pertinent Admission Physical Exam Findings: Withdrawal sx Pt refused Admission Labs to be drawn. Covid-19 result pending - Treatment Hospital Course: Discharged Condition Good, Rehab Referral Accepted Patient has Accepted a Rehab Referral to: [facility] OPD - Medication Discharge Medications: Ambulatory Orders NK [No Known Home Medication] 02/01/19 - Diagnosis (1) Noncompliance with medication regimen Current Visit: Yes Status: Chronic (2) Nicotine dependence Current Visit: Yes Status: Acute Qualifiers: Nicotine product type: cigarettes Substance use status: in withdrawal Qualified Code(s): F17.213 - Nicotine dependence, cigarettes, with withdrawal (3) HIV (human immunodeficiency virus infection) Current Visit: Yes Status: Chronic Qualifiers: HIV symptom status: unspecified Qualified Code(s): B20 - Human immunodeficiency virus [HIV] disease - AMA Did Patient Leave Against Medical Advice: No
--- NOTE | 2019-12-26 09:36 | PN ---
S CIWA - CIWA Score Nausea/Vomitin-No Nausea/No Vomiting Muscle Tremors: None Anxiety: 3 Agitation: 0-Normal Activity Paroxysmal Sweats: No Perspiration Orientation: 0-Oriented Tacttile Disturbances: 0-None Auditory Disturbances: 0-None Visual Disturbances: 0-None Headache: 0-None Present CIWA-Ar Total Score: 3 BHS Progress Note (SOAP) Subjective: Denies withdrawal sx. Pt anxious to discharge today stating "I'm fine, I'm going back to my SRO and follow up with [facility] OPD". Objective: 12/26/19 09:34 Vital Signs - 24 hr 12/25/19 12/25/19 12/25/19 10:09 12:20 17:06 Temperature 98.9 F 98.2 F 98.2 F Pulse Rate 81 84 94 H Respiratory 18 18 18 Rate Blood Pressure 117/73 136/90 135/86 O2 Sat by Pulse 98 Oximetry (%) 12/25/19 12/25/19 12/26/19 20:25 22:20 05:46 Temperature 98.6 F 98.2 F Pulse Rate 100 H 99 H 74 Respiratory 18 18 18 Rate Blood Pressure 154/92 114/70 110/72 O2 Sat by Pulse 98 96 Oximetry (%) pt refused labs on admission. Alert o x 3 nad oob ambulating with steady gait Assessment: 12/26/19 09:34 resolved w/s medically stable Plan: follow up with counselor to arrange CD aftercare referral may discharge today per request.
[2019-12-26] MEDS: NICOTINE 21 MG/24 HOURS TOPICAL PATCH TD SCH (09:55)
[2019-12-26] MEDS: PRENATAL VITAMINS W/ FOLIC ACID TABLET (FP) PO SCH (09:55)
[2019-12-26] MEDS: BACITRACIN 0.9 GM PACKET TP SCH (09:57)
[2019-12-26 11:05] VITALS: BP 135/98; PULSE 90; TEMP 97.8
[2019-12-27] MEDS ORDERED: chlordiazePOXIDE HCL 10 MG CAPSULE PO SCH (05:00)
[2019-12-28] MEDS ORDERED: chlordiazePOXIDE HCL 10 MG CAPSULE PO ONE (05:00)
== END 2019-12-26 10:30 | disposition home or self-care (01) | DRG 774 ==
LOC: YASAS 12:23 → Y5N DETOX 18:23
PROVIDERS: ADMIT Allergy & Immunology; ATTEND Allergy & Immunology
PROC: HZ2ZZZZ Detoxification Services for Substance Abuse Treatment (ICD-10-PCS; principal; 2019-12-23)
DX: F10.230 Alcohol dependence with withdrawal, uncomplicated (principal); F14.20 Cocaine dependence, uncomplicated; F15.20 Other stimulant dependence, uncomplicated; F12.20 Cannabis dependence, uncomplicated; F17.210 Nicotine dependence, cigarettes, uncomplicated; F25.9 Schizoaffective disorder, unspecified; F19.24 Other psychoactive substance dependence with psychoactive substance-induced mood disorder; F43.10 Post-traumatic stress disorder, unspecified; Z21 Asymptomatic human immunodeficiency virus [HIV] infection status; D64.9 Anemia, unspecified; I10 Essential (primary) hypertension; R21 Rash and other nonspecific skin eruption; Z86.19 Personal history of other infectious and parasitic diseases; Z88.0 Allergy status to penicillin; Z88.1 Allergy status to other antibiotic agents; Z91.14 Patient's other noncompliance with medication regimen; Z56.0 Unemployment, unspecified; Z59.0 Homelessness
CPT/HCPCS: 93005; 93010; U0003